=== PATIENT | female | born 1950 | race African-American/Black ===

== ENCOUNTER 2016-11-07 23:53 | Inpatient (IN) ==
[2016-11-08] MEDS ORDERED: SODIUM CHLORIDE 0.9% 1,000 ML IV STA (00:30)
[2016-11-08] MEDS ORDERED: METOCLOPRAMIDE 10 MG/2 ML VIAL IV STA (00:30)
[2016-11-08] MEDS ORDERED: ONDANSETRON 4 MG/2 ML VIAL IV STA (00:30)
--- NOTE | 2016-11-08 00:35 | Emergency Department Note ---
Arrival - Arrival Chief Complaint: Nausea/Vomiting/Diarrhea Stated Complaint: throwing up ED Nursing Triage Note: Patient to triage with c/o N/V since yesterday. unable to keep meals and medications down. Patient stated she started to feel better but tonight s/s returned and that prompted her to come to ED. Last BM today and patient reports it was normal. denies ABD pain or any other s/s. Mode of Arrival: Wheelchair Limitations: No Limitations Source: Patient Time Seen by Provider: 11/08/16 00:30 - History of Present Illness HPI Narrative: This 66-year-old black female presents with 2 days of nausea and vomiting without diarrhea, chills, fever, or severe abdominal pain. She denies anyone at home with similar symptoms nor any recent ingestion of tainted food or beverages. She does complain of area of localized tenderness that is firm and above the umbilicus which the patient states she is only noticed in the last couple days. However, the patient reports a 30 pound weight loss over the last month. She is a diabetic but states her sugars have been fairly well controlled. At the moment she is nauseated but in no medical distress. Onset (ago): day(s) (Patient presents 2 days post onset of symptoms) Date of Last Menstrual Period: menopause Allergies/Adverse Reactions: Allergies Allergy/AdvReac Type Severity Reaction Status Date / Time Sulfa (Sulfonamide Allergy Unknown/Unable Verified 11/08/16 00:04 Antibiotics) to obtain Home Medications: Home Medications Medication Instructions Recorded Confirmed Type Furosemide 40 mg PO DAILY 06/25/15 03/10/16 History Gabapentin 300 mg PO BEDTIME 06/25/15 03/10/16 History HYDROcodone/ACETAMIN 10-325 [[place] 1 tablet PO Q4-6H PRN 06/25/15 03/10/16 History 10-325] Levothyroxine Tab [Synthroid Tab] 150 mcg PO 0600 06/25/15 03/10/16 History Omeprazole 20 mg PO DAILY 06/25/15 03/10/16 History Pentoxifylline [TRENtal] 400 mg PO TID 06/25/15 03/10/16 History Potassium Chloride [Klor-Con M20] 20 meq PO DAILY 06/25/15 03/10/16 History Quinapril [Accupril] 20 mg PO DAILY 06/25/15 03/10/16 History azaTHIOprine [Azathioprine] 50 mg PO DAILY 06/25/15 03/10/16 History Diltiazem Cd Cap [Cardizem CD] 240 mg PO BID #60 capsule 06/29/15 03/10/16 Rx Polyethylene Glycol Powder 17 gm PO TID #90 powder 06/29/15 03/10/16 Rx [Miralax] Warfarin [Coumadin] 3 mg PO DAILY@1800 #30 tablet 06/29/15 03/10/16 Rx Docusate Sodium Cap [Colace Cap] 100 mg PO BID #60 capsule 08/11/15 03/10/16 Rx Acetic Acid 0.25% Irrigation 50 ml IRRIG DAILY PRN 03/09/16 03/10/16 History Albuterol Sulfate [Ventolin HFA] 2 puffs INH Q4-6H PRN 03/09/16 03/10/16 History Chlorpheniramine/Dextromethorp 1 each PO Q6H PRN 03/09/16 03/10/16 History [Coricidin Hbp Cough & Cold Tab] Ferrous Sulfate [Ferrous Sulfate 325 mg PO DAILY 03/09/16 03/10/16 History Cap] Gentamicin 0.1% Cream [Garamycin 1 applic TOP DAILY PRN 03/09/16 03/10/16 History 0.1% Cream] metFORMIN [Glucophage] 850 mg PO DAILY W/BREAKFAST 03/09/16 03/10/16 History predniSONE TAB [PredniSONE] 5 mg PO DAILY 03/09/16 03/10/16 History Collagenase Oint [Santyl Oint] 1 applic TOP DAILY #30 gm 03/17/16 Rx Nebivolol [Bystolic] 40 mg PO DAILY #60 tablet 03/17/16 Rx Spironolactone [Aldactone] 25 mg PO DAILY #60 tablet 03/17/16 Rx Review of System - Review of System 12 point system: reviewed and no additional remarkable complaints except as stated - Review of System Constitutional: Present: as per HPI Gastrointestinal: Present: as per HPI Medical,Surgical,& Family Hx - Medical History Cardio: History of: Cardiac Dysrhythmia, CHF, Hypertension No history of: Congenital Heart Disease, CAD, [place], Pacemaker, PVD, Valvular Heart Disease, Cardiovascular Problems Endocrine: History of: Diabetes Mellitus (NIDDM), Thyroid Disorder, Endocrine Problems No history of: Adrenal Disease, Diabetes Mellitus (IDDM), Dyslipidemia, Endocrine Cancer Rheumatology: History of;: Rheumatoid Arthritis No history of;: Fibromyalgia, Gout, Myasthenia Gravis, Rheumatological Problems Respiratory: History of: COPD, Pulmonary Embolism (2006 per patient) No history of: Asthma, Bronchitis, Intubation, Obstructive Sleep Apnea, Pulmonary Hypertension, Pneumonia, Lung Cancer, Respiratory Problems Musculoskeletal: No history of: Amputation, Back/Neck Problems, Degenerative Disk Disease, Herniated Disk, Osteoporosis, Musculoskeletal Cancer, Musculoskeletal Problems Hematology: No history of: Anemia, Bleeding Problems, Clotting Problems, Sickle Cell Disease, Hematologic Cancer, Blood Disorders Other: History of: Miscellaneous Medical Problems (wounds to legs. Chronic venous disease with history of DVT and pulmonary e) - Surgical History Cardiac Surgeries: Patient Denies: Femoral-Popliteal Bypass Graft, Cardiac Catheterization, Cardiac Surgery, Carotid Endarterectomy, Internal Defibrillator, Vascular Access Devices Thoracic Surgeries: Patient denies;: Organ Transplant, Lobectomy HEENT Surgeries: Patient denies: Carotid Endarterectomy, Thyroid Surgery Abdominal Surgeries: Surgical HX of: Abdominal Surgery, Cholecystectomy Patient denies: Appendectomy, Colonoscopy, Gastric Bypass Surgery, EGD, Hernia Repair, Splenectomy Reproductive Surgeries: Surgical HX of;: Tubal Ligation Patient denies;: Breast Surgery, Section, Dilation and Curettage, Genitourinary Surgery, Gynecologic Surgery, Hysterectomy Orthopedic Surgeries: Patient denies;: Implanted Devices, Orthopedic Surgery, Spinal Surgery, Total Hip Replacement, Total Knee Replacement - Family History Family History: Reports;: Family Hypertension Denies;: Family Anesthesia Reaction, Family Cancer, Family Diabetes, Family Heart Disease, Family Psychiatric Problems, Family Stroke - Social History Smoking Status: Never smoker Frequency of Alcohol Use: None Type of Drug Use: None Exam Physical Examination: GENERAL: Well developed, well nourished elderly black female in no acute distress. HEENT: Normocephalic. No trauma. Moist mucous membranes. EOMI. PERRLA. ENT NML NECK: Supple. No adenopathy. CARDIAC: Regular. No murmurs. Heart rate 127 CHEST: Clear to auscultation. No respiratory distress. O2 sat 95% ABDOMEN: Soft. Nontender except for an area of 3 cm in diameter that is firm and tender above the umbilicus consistent with mass versus entrapped hernia. Hyperactive bowel sounds. EXTREMITIES: No trauma. Normal ROM. No pedal edema. SKIN: No diaphoresis. No rash. NEURO: Alert. Neuro intact no focal deficits. Vital Signs: Vital Signs Temperature 97.5 F L 11/07/16 23:56 Pulse Rate 127 H 11/07/16 23:56 Respiratory Rate 18 11/07/16 23:56 Blood Pressure 166/116 11/07/16 23:56 O2 Sat by Pulse Oximetry 86 L 11/08/16 02:20 Course - Reevaluation(s) Reevaluation #1: Discussed with patient the results of her study which indicates small bowel obstruction - Consultations Consultation #1: Discussed with Dr. Lerner who will admit for further evaluation treatment. Results - Labs CBC & BMP: 11/08/16 00:45 11/08/16 00:45 Labs: I have reviewed the laboratory noted the low hematocrit, low potassium, and elevated lactate. - Diagnostic Findings Procedure: CT Abdomen and Pelvis: image reviewed by me, report reviewed by me ( CT demonstrates mild bowel obstruction secondary to umbilical hernia) Disposition Clinical Impression: Small bowel obstruction, Weight loss Case discussed with: patient Disposition: Still a Patient Condition: Guarded Time of Disposition: 03:08
[2016-11-08 01:38] LABS: Basophils % 0.5 % (0.0-0.8); Eosinophils % 0.7 % (0.00-10.9); Hematocrit 29.3 VOL% (35.7-47.0); Hemoglobin 9.9 GM/DL (12.0-16.0); Immature Granulocytes % 0.3 %; Immature Granulocytes Absolute 0.02 #; Lymphocytes # 1.7 10*3/uL (1.4-4.0); Lymphocytes % 29.3 % (21.3-54.2); Mean Corpuscular HGB Conc 33.8 GM/DL (32-36); Mean Corpuscular Hemoglobin 24 PG (27-34); Mean Corpuscular Volume 70.3 FL (87-102); Mean Platelet Volume 11.5 FL (9.6-12.0); Monocytes # 0.4 10*3/uL (0.11-0.8); Monocytes % 7.4 % (1.7-12.7); Neutrophils # 3.6 10*3/uL (1.4-7.4); Neutrophils % 61.8 % (38.7-73.9); Platelet Count 211 T/CUMM (130-400); Red Blood Count 4.17 MC/CUMM (3.8-5.5); Red Cell Distribution Width 16.3 % (9.3-17.3); White Blood Count 5.8 T/CUMM (4-12)
[2016-11-08] MEDS ORDERED: METOCLOPRAMIDE 10 MG/2 ML VIAL ONE (01:43)
[2016-11-08] MEDS ORDERED: ONDANSETRON 4 MG/2 ML VIAL ONE ×4 (01:43→15:23)
[2016-11-08 02:06] LABS: Lactic Acid 2.4 MMOL/L (0.4-2.0)
[2016-11-08 02:07] LABS: Albumin 3.3 G/DL (3.4-5.0); Bilirubin,Total 1.5 MG/DL (0.2-1.0); Calcium 9.3 MG/DL (8.5-10.1); Osmolality,Calculated 276.5 MOS/KG (273-304); Potassium 3.2 MMOL/L (3.5-5.1); Total Protein 9.1 G/DL (6.4-8.3)
[2016-11-08] MEDS ORDERED: POTASSIUM BICARB EFFERVESCENT 25 MEQ TABLET PO ONE ×2 (02:21→02:39)
[2016-11-08] MEDS ORDERED: hydrALAZINE 20 MG/1 ML VIAL IV STA (02:38)
[2016-11-08] MEDS ORDERED: hydrALAZINE 20 MG/1 ML VIAL ONE (02:39)
[2016-11-08] MEDS ORDERED: LACTATED RINGERS 1,000 ML IV STA (03:42)
[2016-11-08] MEDS ORDERED: DILTIAZEM 50 MG/10 ML VIAL IV STA (03:50)
[2016-11-08] MEDS ORDERED: DILTIAZEM 50 MG/10 ML VIAL IV ONE (03:50)
[2016-11-08] MEDS ORDERED: SODIUM CHLORIDE 0.9% 100 ML IV ONE (04:12)
[2016-11-08] MEDS ORDERED: DILTIAZEM 100 MG VIAL.ADD IV ONE (04:12)
[2016-11-08] MEDS: DILTIAZEM INJ 100 MG in SODIUM CHLORIDE 0.9% 100 ML IV SCH ×3 (04:15→17:30)
--- NOTE | 2016-11-08 05:38 | EKG Report ---
Stationary ECG Study [facility] ER Test Date: 11/08/2016 3:23:09 AM Pat Name: ALBAN OLMOS Department: Room: 111 Gender: F Triage Nurse: : 1950 Requested by: Duran Rouse Order Number: [id number] Reading MD: LINDSEY CARTER Intervals [place] Rate: 143 P: 999 CA: 0 QRS: 13 QRSD: 98 T: 264 QT: 302 QTc: 385 Interpretive Statements ATRIAL FIBRILLATION WITH RAPID VENTRICULAR RESPONSE WITH ABERRANT CONDUCTION OR VENTRICULAR PREMATURE COMPLEXES at [address] DEVIATION AND MODERATE T-WAVE ABNORMALITY, CONSIDER ISCHEMIA Electronically Signed On 11-08-16 07:59:46 CDT by LINDSEY CARTER [email or web address]
[2016-11-08] MEDS ORDERED: ALBUTEROL/IPRATROPIUM 3 ML NEB RESP TX PRN (05:47)
[2016-11-08] MEDS ORDERED: GLUCAGON 1 MG VIAL IM PRN ×2 (05:47→09:42)
[2016-11-08] MEDS ORDERED: DEXTROSE 50% 25 GM/50 ML SYRINGE IV PRN (05:47)
[2016-11-08] MEDS ORDERED: HYDROmorphone 2 MG/1 ML VIAL IV PRN (05:47)
[2016-11-08] MEDS ORDERED: ONDANSETRON 4 MG/2 ML VIAL IV PRN (05:47)
[2016-11-08] MEDS: LACTATED RINGERS 1,000 ML IV SCH ×3 (06:00→21:35)
--- NOTE | 2016-11-08 07:34 | XRay Report ---
XR abdomen 1V Indication: Pneumoperitoneum Comparison: None available Findings: Detail is limited from positioning. No free fluid or free air seen. The bowel gas pattern appears within normal limits. Faint calcifications overlie the right side of abdomen. No other abnormal calcifications are present. No other abnormality is identified. Impression: No definite evidence of free air demonstrated. PROCEDURE INTERPRETED AT [facility] DEPARTMENT OF RADIOLOGY Final Report Signed by: Dr. Tamir Suarez
--- NOTE | 2016-11-08 07:36 | XRay Report ---
XR chest 1V portable Indication: Chest pain Comparison: 20 April 2016 Findings: The heart and mediastinum are stable in size and configuration. The pulmonary vascularity is increased with bilateral increased interstitial lung density. No other lung infiltrates, effusions, pneumothorax or other abnormality is demonstrated. Impression: Findings suggest cardiac decompensation. PROCEDURE INTERPRETED AT [facility] DEPARTMENT OF RADIOLOGY Final Report Signed by: Dr. Tamir Suarez
--- NOTE | 2016-11-08 08:16 | CT Report ---
CT abdomen pelvis Indication: Abdominal pain Comparison: None available Technique: Axial CT imaging of the abdomen and pelvis is performed with intravenous and oral contrast. Contrast dose is 100 cc of Omnipaque 350. Findings: Heart size is enlarged. There is dilated the inferior vena cava with contrast refluxing into the IVC and hepatic veins. CT abdomen: The liver spleen pancreas and adrenal glands are normal in size and enhancement. No evidence of focal lesion is demonstrated in these solid organs. Kidneys are normal in size and enhancement. No evidence of hydronephrosis or nephrolithiasis is seen. There are distended loops of proximal small bowel present. There is anterior abdominal wall hernia with bowel loops extending into the hernia sac. The defects size is estimated 1.6 cm. There is fluid in the inferior hernia sac. Distal bowel caliber is normal and no wall thickening or adjacent inflammatory change is seen. No evidence of free fluid or free air is present. Gallbladder is been removed. There is body wall edema CT pelvis: Large amount of free fluid is seen in the pelvis. The pelvic bowel appears within normal limits. Bladder shows no evidence of abnormality. The pelvic organs show no evidence of abnormality Impression: Ventral abdominal wall hernia containing small bowel with distended proximal small bowel loops suggesting increased partial obstruction. This CT exam was performed using one or more the following dose reduction techniques: Automated exposure control, adjustment of the MA and/or KV according to patient size, or use of iterative reconstruction technique. PROCEDURE INTERPRETED AT [facility] DEPARTMENT OF RADIOLOGY Final Report Signed by: Dr. Tamir Suarez
[2016-11-08] MEDS: METOCLOPRAMIDE 10 MG/2 ML VIAL IV SCH ×3 (08:29→21:35)
[2016-11-08] MEDS: hydrALAZINE 20 MG/1 ML VIAL IV PRN (09:05)
--- NOTE | 2016-11-08 09:10 | Hospitalist Consult Note ---
<Annette Sinclair - Last Filed: 11/08/16 09:00> Assessment and Plan - Time spent with patient Time spent with patient: Greater than 30 minutes (1) Umbilical hernia, incarcerated Status: Acute Assessment and plan: Patient has umbilical hernia with partial small bowel obstruction. Surgery is scheduled for this a.m. Current Visit: Yes (2) Type 2 diabetes mellitus Status: Acute Assessment and plan: Will hold metformin, surgery today. Will order A1c. Will start patient of sliding scale. will continue to monitor. will order a.m. labs. Current Visit: No (3) Hypertension Status: Chronic Assessment and plan: Cardiology has been consulted. Patient has a history of chronic AFib & is on coumadin. Will order PT & INR. Will follow recommendation for blood pressure management, restart home medications. Current Visit: No (4) Hypokalemia Status: Acute Assessment and plan: K 3.2. Will start potassium protocol. Restart home medication potassium. Current Visit: Yes History of Present Illness - Data of Consult Patient: new to practice - Consult Narrative Reason for consult: Medical Management History of present illness: Ms. Amin is a 66 year old black female w/ PMHx of chronic Afib(on coumadin), CHF, HTN, Diabetes, Arthritis, COPD, Thyroid disorder; that presented to the ED for nausea and vomiting without any fever, chills, or abdominal pain x1 - 2 days. While in the ED CT finding of mild bowel obstruction secondary to umbilical hernia and She was [facility] ICU [facility]. The plan is to take her to surgery today for Exploratory Laparotomy and Repair of Hernia. Hospital Medicine is consulted today for medical management with diabetes. CC: Jesus Salinas MD - Home Medications and Allergies Home Medications: Home Medications Medication Instructions Recorded Confirmed Type Furosemide 40 mg PO DAILY 06/25/15 03/10/16 History Gabapentin 300 mg PO BEDTIME 06/25/15 03/10/16 History HYDROcodone/ACETAMIN 10-325 [[place] 1 tablet PO Q4-6H PRN 06/25/15 03/10/16 History 10-325] Levothyroxine Tab [Synthroid Tab] 150 mcg PO 0600 06/25/15 03/10/16 History Omeprazole 20 mg PO DAILY 06/25/15 03/10/16 History Pentoxifylline [TRENtal] 400 mg PO TID 06/25/15 03/10/16 History Potassium Chloride [Klor-Con M20] 20 meq PO DAILY 06/25/15 03/10/16 History Quinapril [Accupril] 20 mg PO DAILY 06/25/15 03/10/16 History azaTHIOprine [Azathioprine] 50 mg PO DAILY 06/25/15 03/10/16 History Diltiazem Cd Cap [Cardizem CD] 240 mg PO BID #60 capsule 06/29/15 03/10/16 Rx Polyethylene Glycol Powder 17 gm PO TID #90 powder 06/29/15 03/10/16 Rx [Miralax] Warfarin [Coumadin] 3 mg PO DAILY@1800 #30 tablet 06/29/15 03/10/16 Rx Docusate Sodium Cap [Colace Cap] 100 mg PO BID #60 capsule 08/11/15 03/10/16 Rx Acetic Acid 0.25% Irrigation 50 ml IRRIG DAILY PRN 03/09/16 03/10/16 History Albuterol Sulfate [Ventolin HFA] 2 puffs INH Q4-6H PRN 03/09/16 03/10/16 History Chlorpheniramine/Dextromethorp 1 each PO Q6H PRN 03/09/16 03/10/16 History [Coricidin Hbp Cough & Cold Tab] Ferrous Sulfate [Ferrous Sulfate 325 mg PO DAILY 03/09/16 03/10/16 History Cap] Gentamicin 0.1% Cream [Garamycin 1 applic TOP DAILY PRN 03/09/16 03/10/16 History 0.1% Cream] metFORMIN [Glucophage] 850 mg PO DAILY W/BREAKFAST 03/09/16 03/10/16 History predniSONE TAB [PredniSONE] 5 mg PO DAILY 03/09/16 03/10/16 History Collagenase Oint [Santyl Oint] 1 applic TOP DAILY #30 gm 03/17/16 Rx Nebivolol [Bystolic] 40 mg PO DAILY #60 tablet 03/17/16 Rx Spironolactone [Aldactone] 25 mg PO DAILY #60 tablet 03/17/16 Rx Allergies/Adverse Reactions: Allergies Allergy/AdvReac Type Severity Reaction Status Date / Time Sulfa (Sulfonamide Allergy Unknown/Unable Verified 11/08/16 00:04 Antibiotics) to obtain Medical,Surgical,& Family Hx - Medical History Cardio: History of: Cardiac Dysrhythmia, CHF, Hypertension No history of: Congenital Heart Disease, CAD, [place], Pacemaker, PVD, Valvular Heart Disease, Cardiovascular Problems Endocrine: History of: Diabetes Mellitus (NIDDM), Thyroid Disorder, Endocrine Problems No history of: Adrenal Disease, Diabetes Mellitus (IDDM), Dyslipidemia, Endocrine Cancer Rheumatology: History of;: Rheumatoid Arthritis No history of;: Fibromyalgia, Gout, Myasthenia Gravis, Rheumatological Problems Respiratory: History of: COPD, Obstructive Sleep Apnea, Pulmonary Embolism ( 2007 per patient) No history of: Asthma, Bronchitis, Intubation, Pulmonary Hypertension, Pneumonia, Lung Cancer, Respiratory Problems Musculoskeletal: No history of: Amputation, Back/Neck Problems, Degenerative Disk Disease, Herniated Disk, Osteoporosis, Musculoskeletal Cancer, Musculoskeletal Problems Hematology: No history of: Anemia, Bleeding Problems, Clotting Problems, Sickle Cell Disease, Hematologic Cancer, Blood Disorders Other: History of: Miscellaneous Medical Problems (wounds to legs. Chronic venous disease with history of DVT and pulmonary e) - Surgical History Cardiac Surgeries: Patient Denies: Femoral-Popliteal Bypass Graft, Cardiac Catheterization, Cardiac Surgery, Carotid Endarterectomy, Internal Defibrillator, Vascular Access Devices Thoracic Surgeries: Patient denies;: Organ Transplant, Lobectomy Neurologic Surgeries: Patient denies: Neurologic Surgery HEENT Surgeries: Patient denies: Carotid Endarterectomy, Eye Surgery, Thyroid Surgery, Tonsilectomy & Adenoidectomy Abdominal Surgeries: Surgical HX of: Abdominal Surgery, Cholecystectomy Patient denies: Appendectomy, Colonoscopy, Gastric Bypass Surgery, EGD, Hernia Repair, Splenectomy Reproductive Surgeries: Surgical HX of;: Tubal Ligation Patient denies;: Breast Surgery, Section, Dilation and Curettage, Genitourinary Surgery, Gynecologic Surgery, Hysterectomy Orthopedic Surgeries: Patient denies;: Implanted Devices, Orthopedic Surgery, Spinal Surgery, Total Hip Replacement, Total Knee Replacement - Family History Family History: Reports;: Family Hypertension, Family Stroke (mother, grandmother, sister) Denies;: Family Anesthesia Reaction, Family Cancer, Family Diabetes, Family Heart Disease, Family Psychiatric Problems - Social History Smoking Status: Never smoker Frequency of Alcohol Use: Rarely Type of Drug Use: None Marital Status: Lives With:: Spouse Functional capacity: uses cane/walker Review of systems: ROS completed and pertinent positives and negatives in the HPI. Exam - Constitutional Vitals: Period Temp Pulse Resp BP Sys/Mehta Pulse Ox Last 24 Hr 97.5 F-98.1 F 103-127 18-29 140-166/95-116 86-98 General appearance: no acute distress, over weight Exam: She verbalized feeling better this morning. She is noted to have a firm palpable area at/around the umbilicus without any tenderness. Abdomen is soft, BS positive and without any tenderness or pain to palpation. Bilateral lower leg dressings intact: (patient verbalized bilateral legs wounds that she has home health and Dr Andre has been caring for). - Head Head exam: Present: normal inspection - Eye Eye exam: Present: EOMI Pupils: Present: SHWETHA - ENT ENT exam: Present: other (left nare NG tube secure, LWS of greenish drainage) - Neck Neck exam: Present: normal inspection - Respiratory Respiratory exam: Present: clear to auscultation bilaterally. Absent: stridor, wheezes - Cardiovascular Cardiovascular exam: Present: irregular rhythm (HX: Afib) - GI/Abdominal GI/Abdominal exam: Present: normal bowel sounds, hernia (umbilicus is firm without any pain ), soft. Absent: tenderness, rebound - Extremities Exam Extremities exam: Present: full ROM, edema (trace edema, bilateral lower leg dressings related to leg wounds that Dr Andre has been following) - Neurological Exam Neurological exam: Present: alert, oriented X3 - Psychiatric Psychiatric exam: Present: normal affect, normal mood. Absent: agitated, anxious - Skin Skin exam: Present: normal color, warm, dry Results - Labs CBC & BMP: 11/08/16 00:45 11/08/16 00:45 Lab Results: I have reviewed the past 24 hour labs - Impressions 11/08/16 Abdomen/Pelvis CT: Impression: Ventral abdominal wall hernia containing small bowel with distended proximal small bowel loops suggesting increased partial obstruction. 11/08/16 CXR: Impression: Findings suggest cardiac decompensation. 11/08/16 Abdomen XR: Impression: No definite evidence of free air demonstrated. - Diagnostic Findings Procedure: Abdominal x-ray: report reviewed by me (no definite evidence of free air demonstrated), Chest x-ray: report reviewed by me (findings suggest cardiac decompensation), CT Abdomen and Pelvis: report reviewed by me (Ventral abdominal wall hernia containing small bowel with distended proximal small bowel loops suggesting increased partial obstruction) Quality Measures - VTE Contraindication to Pharmacological VTE Prophylaxis: High Risk of Bleeding <Miguel Angel Llanos - Last Filed: 11/08/16 09:42> History of Present Illness - Consult Narrative History of present illness: Ms. Amin is a 66 year old female with small bowel obstruction secondary to incarcerated bowel. I have interviewed the patient, examined the patient, and reviewed all the available laboratory tests and x-rays. I concur with the assessment and plans as outlined by the nurse practitioner. She will be treated postoperatively with a sliding scale insulin coverage. CC: Jesus Salinas MD Exam - Constitutional Vitals: Period Temp Pulse Resp BP Sys/Mehta Pulse Ox Last 24 Hr 97.5 F-98.1 F 103-127 18-29 140-166/95-116 86-98 Results - Labs CBC & BMP: 11/08/16 00:45 11/08/16 00:45
[2016-11-08 09:32] LABS: INR 1.7; PT Patient Result 18.7 SECS
[2016-11-08] MEDS ORDERED: DEXTROSE 50% 25 GM/50 ML VIAL IV PRN ×2 (09:41→09:42)
--- NOTE | 2016-11-08 09:58 | General Surg History&Physical ---
Assessment and Plan - Time spent with patient Time spent with patient: Greater than 30 minutes (1) Atrial fibrillation with RVR Status: Acute Assessment and plan: 66-year-old -[place] female with multiple comorbidities admitted by Dr. Salinas through the emergency room last night with an incarcerated umbilical hernia. Patient has abdominal pain with nausea and vomiting. NG tube has been placed with copious amounts of biliary drainage. Antibiotics and IV fluids have been started. Patient did have an elevated lactic acid and this will be repeated this morning to see if she has been adequately resuscitated. Hospitalists have been consulted to assist with her multiple medical problems. Cardiology has also been consulted to assist with her multiple cardiac issues. Patient is in A. fib with RVR on a Cardizem drip in the ICU. Her INR is therapeutic at 1.7. Since she is going emergently to the OR for repair of this incarcerated hernia will go ahead and give her 1 unit of FFP. Her potassium is low and she is getting potassium replacement per protocol. Patient had an appointment with Dr. Andre today in the wound center for her bilateral lower extremity chronic wounds. I did discuss this with Ana Rosa Espitia, his ACNP, and she would like Julia the wound care nurse to handle the wounds while the patient is in the hospital and Dr. Andre will follow up with her after discharge in the wound center. Dr. Salinas will see and examine patient and further recommendations to follow. Current Visit: No (2) History of DVT (deep vein thrombosis) Status: Chronic Current Visit: No (3) Chronic venous insufficiency Status: Chronic Current Visit: No (4) Anemia of chronic disease Status: Chronic Current Visit: No (5) Venous stasis ulcer of both lower extremities without varicose veins Status: Acute Current Visit: No (6) Chronic anticoagulation Status: Chronic Current Visit: No (7) Hypertension Status: Chronic Current Visit: No (8) Dyslipidemia Status: Chronic Current Visit: No (9) Diabetes Status: Chronic Current Visit: No (10) Sleep disorder Status: Chronic Current Visit: No (11) Umbilical hernia, incarcerated Status: Acute Current Visit: Yes (12) Hypokalemia Status: Acute Current Visit: Yes History of Present Illness Chief complaint: Abdominal pain History of present illness: Ms. Amin is a 66 year old -[place] female with history of hypothyroidism, pulmonary embolus, DVT, congestive heart failure, A. fib on Coumadin, diabetes, hypertension, chronic wounds, rheumatoid arthritis, and osteoarthritis admitted by Dr. Salinas through the emergency room last night with abdominal pain, nausea and vomiting. Patient states about 2 days ago she started having nausea and vomiting and localized tenderness above her bellybutton. She states it did improve and then yesterday it came back worse so decided to come to the ED. She denies headache, chest pain, shortness of breath, constipation, or lower extremity pain. Patient is afebrile but tachycardic and hypertensive. Her white count is normal, H&H 9.9/29.3, INR is 1.7, potassium 3.2, lactic acid 2.4, total bilirubin 1.[address] phosphatase [address] scan shows a ventral abdominal wall hernia containing small bowel with distended proximal small bowel loops suggesting bowel obstruction. Patient is also in A. fib with RVR on a Cardizem drip. Upon exam patient is in a lot of abdominal discomfort with approximately 1300 cc of NG output since admission. She has a hard mass superior to her umbilicus that is tender and erythematous. She also has chronic wounds to her bilateral lower extremities that have a foul odor. There are no signs of infection but they are copiously draining. Home Medications Medication Instructions Recorded Confirmed Type Furosemide 40 mg PO DAILY 06/25/15 03/10/16 History Gabapentin 300 mg PO BEDTIME 06/25/15 03/10/16 History HYDROcodone/ACETAMIN 10-325 [[place] 1 tablet PO Q4-6H PRN 06/25/15 03/10/16 History 10-325] Levothyroxine Tab [Synthroid Tab] 150 mcg PO 0600 06/25/15 03/10/16 History Omeprazole 20 mg PO DAILY 06/25/15 03/10/16 History Pentoxifylline [TRENtal] 400 mg PO TID 06/25/15 03/10/16 History Potassium Chloride [Klor-Con M20] 20 meq PO DAILY 06/25/15 03/10/16 History Quinapril [Accupril] 20 mg PO DAILY 06/25/15 03/10/16 History azaTHIOprine [Azathioprine] 50 mg PO DAILY 06/25/15 03/10/16 History Diltiazem Cd Cap [Cardizem CD] 240 mg PO BID #60 capsule 06/29/15 03/10/16 Rx Polyethylene Glycol Powder 17 gm PO TID #90 powder 06/29/15 03/10/16 Rx [Miralax] Warfarin [Coumadin] 3 mg PO DAILY@1800 #30 tablet 06/29/15 03/10/16 Rx Docusate Sodium Cap [Colace Cap] 100 mg PO BID #60 capsule 08/11/15 03/10/16 Rx Acetic Acid 0.25% Irrigation 50 ml IRRIG DAILY PRN 03/09/16 03/10/16 History Albuterol Sulfate [Ventolin HFA] 2 puffs INH Q4-6H PRN 03/09/16 03/10/16 History Chlorpheniramine/Dextromethorp 1 each PO Q6H PRN 03/09/16 03/10/16 History [Coricidin Hbp Cough & Cold Tab] Ferrous Sulfate [Ferrous Sulfate 325 mg PO DAILY 03/09/16 03/10/16 History Cap] Gentamicin 0.1% Cream [Garamycin 1 applic TOP DAILY PRN 03/09/16 03/10/16 History 0.1% Cream] metFORMIN [Glucophage] 850 mg PO DAILY W/BREAKFAST 03/09/16 03/10/16 History predniSONE TAB [PredniSONE] 5 mg PO DAILY 03/09/16 03/10/16 History Collagenase Oint [Santyl Oint] 1 applic TOP DAILY #30 gm 03/17/16 Rx Nebivolol [Bystolic] 40 mg PO DAILY #60 tablet 03/17/16 Rx Spironolactone [Aldactone] 25 mg PO DAILY #60 tablet 03/17/16 Rx Allergies Allergy/AdvReac Type Severity Reaction Status Date / Time Sulfa (Sulfonamide Allergy Unknown/Unable Verified 11/08/16 00:04 Antibiotics) to obtain Medical,Surgical,& Family Hx - Medical History Cardio: History of: Cardiac Dysrhythmia, CHF, Hypertension No history of: Congenital Heart Disease, CAD, [place], Pacemaker, PVD, Valvular Heart Disease, Cardiovascular Problems Endocrine: History of: Diabetes Mellitus (NIDDM), Thyroid Disorder, Endocrine Problems No history of: Adrenal Disease, Diabetes Mellitus (IDDM), Dyslipidemia, Endocrine Cancer Rheumatology: History of;: Rheumatoid Arthritis No history of;: Fibromyalgia, Gout, Myasthenia Gravis, Rheumatological Problems Respiratory: History of: COPD, Obstructive Sleep Apnea, Pulmonary Embolism ( 2006 per patient) No history of: Asthma, Bronchitis, Intubation, Pulmonary Hypertension, Pneumonia, Lung Cancer, Respiratory Problems Musculoskeletal: No history of: Amputation, Back/Neck Problems, Degenerative Disk Disease, Herniated Disk, Osteoporosis, Musculoskeletal Cancer, Musculoskeletal Problems Hematology: No history of: Anemia, Bleeding Problems, Clotting Problems, Sickle Cell Disease, Hematologic Cancer, Blood Disorders Other: History of: Miscellaneous Medical Problems (wounds to legs. Chronic venous disease with history of DVT and pulmonary e) - Surgical History Cardiac Surgeries: Patient Denies: Femoral-Popliteal Bypass Graft, Cardiac Catheterization, Cardiac Surgery, Carotid Endarterectomy, Internal Defibrillator, Vascular Access Devices Thoracic Surgeries: Patient denies;: Organ Transplant, Lobectomy Neurologic Surgeries: Patient denies: Neurologic Surgery HEENT Surgeries: Patient denies: Carotid Endarterectomy, Eye Surgery, Thyroid Surgery, Tonsilectomy & Adenoidectomy Abdominal Surgeries: Surgical HX of: Abdominal Surgery, Cholecystectomy Patient denies: Appendectomy, Colonoscopy, Gastric Bypass Surgery, EGD, Hernia Repair, Splenectomy Reproductive Surgeries: Surgical HX of;: Tubal Ligation Patient denies;: Breast Surgery, Section, Dilation and Curettage, Genitourinary Surgery, Gynecologic Surgery, Hysterectomy Orthopedic Surgeries: Patient denies;: Implanted Devices, Orthopedic Surgery, Spinal Surgery, Total Hip Replacement, Total Knee Replacement - Family History Family History: Reports;: Family Hypertension, Family Stroke (mother, grandmother, sister) Denies;: Family Anesthesia Reaction, Family Cancer, Family Diabetes, Family Heart Disease, Family Psychiatric Problems - Social History Smoking Status: Never smoker Frequency of Alcohol Use: Rarely Type of Drug Use: None Marital Status: Lives With:: Spouse Functional capacity: uses cane/walker Exam - Constitutional Vitals: Period Temp Pulse Resp BP Sys/Mehta Pulse Ox Last 24 Hr 97.5 F-98.1 F 103-127 18-29 140-166/95-116 86-98 Exam: Constitutional System: Moderate distress. No tremulousness. Head: Normocephalic, atraumatic. Ears, Nose and Throat System: No evidence of Otitis or Mastoiditis. No epistaxis or discharge Eyes System: Pupils equal, round, and reactive. Extraocular muscles intact. Neck: Supple, without adenopathy, No jugular venous distention. No thyromegaly, neck mass, or prior surgery apparent. Respiratory System: Chest clear to auscultation. Cardiovascular System: Heart with tachycardic rate and irregularly irregular rhythm. No murmur. GI System: Abdomen soft, tender to palpation at mass superior to the umbilicus that is hard. Hypo-active bowel sounds present. Musculoskeletal System: limbs with moderate pedal edema. No palpable distal pulses due to edema. Chronic venous stasis ulcers on bilateral lower extremities Neurological System: No discernable sensory deficit. No aphasia Psychiatric System: Conversation is rational Review of systems: A complete 10 system review of systems was obtained and pertinent positives and negatives per HPI Quality Measures - VTE Contraindication to Pharmacological VTE Prophylaxis: High Risk of Bleeding Results - Labs CBC & BMP: 11/08/16 00:45 11/08/16 00:45 Lab Results: I have reviewed the past 24 hour labs - EKG EKG shows: atrial fibrillation - Impressions Patient is in A. fib with RVR
[2016-11-08 10:33] LABS: Troponin I Only < 0.015 NG/ML (0.00-0.045)
[2016-11-08] MEDS ORDERED: SKIN HEALING OINT (AQUAPHOR) 50 GM TUBE TOP PRN (10:38)
[2016-11-08] MEDS: POTASSIUM CHLORIDE RIDER 10 MEQ in PREMIX 1 EACH IV PRN ×2 (10:38→16:26)
--- NOTE | 2016-11-08 10:43 | Cardiology Consult Note ---
Kam Padron Vanessa, RN, am scribing for, and in the presence of, Satinder Quinn MD 10 :43. Assessment and Plan - Time spent with patient Time spent with patient: Greater than 30 minutes (Due to assessment, planning, documentation, and medication review) (1) Atrial fibrillation with RVR Status: Acute Assessment and plan: 66-year-old BF with PMHx of chronic AF, HLD, DM, HTN, DVT, hypothyroidism, DONNELL, and CHF. LV EF 45-50% on echo 03/17. Now admitted with N/V, abd pain, incarcerated hernia. Chronic A. fib, now with RVR, likely secondary to her acute surgical issues. -AF. Continue IV Cardizem drip for rate control. Accept tachycardia, up to 140 bpm, if not symptomatic. Once p.o. intake feasible, we can intensify rate control. No indication for cardioversion, A. fib is chronic, severe left atrial enlargement. -HYPOKALEMIA - K+ 3.3. Replete with IV KCl. Follow up BMP. -Mild NICM, CHF. She is moderate cardiac risk for planned surgery, which is urgent. We will continue to follow along and optimize her cardiac function -HYPERTENSION -now mildly elevated. Can use IV hydralazine as needed. -Volume status. Currently, not symptomatic from gross volume overload. Will need close monitoring, anticipate changes after surgery, as her abdominal pathology evolves -DONNELL - Continue CPAP -DYSLIPIDEMIA - Statin on hold. Will resume when able to take enteral meds. -HYPOTHYROIDISM - Resume thyroid supplement when able to take enteral meds. -Anticoagulation. Was on Coumadin for history of PE and chronic A. fib. Was reversed for the planned surgery. As soon as it is compatible with the surgery , restart anticoagulation with LMWH, and then Coumadin, once p.o. intake feasible Current Visit: No (2) Hypothyroidism Status: Chronic Assessment and plan: SEE PLAN OF CARE LISTED ABOVE. Current Visit: Yes (3) Obstructive sleep apnea Status: Chronic Assessment and plan: SEE PLAN OF CARE LISTED ABOVE. Current Visit: Yes (4) Chronic anticoagulation Status: Chronic Current Visit: No (5) Chronic atrial fibrillation Status: Chronic Assessment and plan: SEE PLAN OF CARE LISTED ABOVE. Current Visit: No (6) Venous stasis of both lower extremities Status: Chronic Assessment and plan: SEE PLAN OF CARE LISTED ABOVE. Current Visit: No (7) Diabetes Status: Chronic Assessment and plan: SEE PLAN OF CARE LISTED ABOVE. Current Visit: No (8) Dyslipidemia Status: Chronic Assessment and plan: SEE PLAN OF CARE LISTED ABOVE. Current Visit: No (9) History of DVT (deep vein thrombosis) Status: Chronic Assessment and plan: SEE PLAN OF CARE LISTED ABOVE. Current Visit: No (10) History of rheumatoid arthritis Status: Chronic Assessment and plan: SEE PLAN OF CARE LISTED ABOVE. Current Visit: No (11) Hypertension Status: Chronic Assessment and plan: SEE PLAN OF CARE LISTED ABOVE. Current Visit: No (12) Small bowel obstruction Status: Acute Assessment and plan: SEE PLAN OF CARE LISTED ABOVE. Current Visit: Yes (13) Hypokalemia Status: Acute Assessment and plan: SEE PLAN OF CARE LISTED ABOVE. Current Visit: Yes (14) Umbilical hernia, incarcerated Status: Acute Assessment and plan: SEE PLAN OF CARE LISTED ABOVE. 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 She is very drowsy this morning and somewhat of a poor historian. There is no family available at time of exam and interview, and HPI is gathered from current chart, old clinic records. Ms. Amin is a 66 year old black female with risk factor significant for: hypertension, dyslipidemia, obstructive sleep apnea, sedentary lifestyle, obesity, family history of premature CAD and she has never been a smoker. Past medical history includes chronic atrial fibrillation and is anticoagulated with Jantoven for stroke prevention and DVT prevention (history of DVT). In March 2016, she required admission to hospital for volume overload, acutely decompensated systolic and diastolic congestive heart failure with EF 45-50%, and AFRVR. Echo in March 2016 also showed biatrial enlargement, increased RV size, moderate TR with PA pressure 55 mmHg. The patient also has chronic anemia, and she did require blood transfusion during admission. She has chronic venous stasis with ulcers of bilateral lower extremities and follows routinely with Dr. Andre for wound care. Other history includes hypothyroidism and rheumatoid arthritis, GERD. Ms. Amin presented to [facility] ED last night after midnight with complaints of nausea, vomiting, and diarrhea for approximately 24 hours. She was unable to eat or keep medications down. Patient felt symptoms were improving earlier in the evening but worsened that night prompting her presentation. She also reported some slight abdominal tenderness in umbilical area for approximately 2 days and an unintentional 30 pound weight loss over the last month. CT of abdomen showed ventral abdominal wall hernia with small bowel and distended proximal small bowel loops suggestive of small bowel obstruction. It was decided she be admitted to [facility] for evaluation and treatment of small bowel obstruction, but just prior to transferring from ED to [facility] floor, patient had sudden onset of extreme nausea with dry heaves, increased abdominal pain, hypotension, and was noted to be in atrial fibrillation with ventricular response 150. Patient was then treated with IV Cardizem bolus and infusion, IV fluids, ventricular response improved, and she was rerouted to ICU for close observation. Cardiology is now asked to see this morning for AFRVR. This morning, patient is resting comfortably in the ICU with NADN. IV Cardizem 15 mg/min with ventricular response of 100. BP 151/95. Oxygen saturation 96% with 2L/NC supplemental O2. She is drowsy, but reports she has not had any recent shortness of breath, chest pain, or anginal equivalent. EKG with mild ST deviation, late transition, but no acute ST elevation and unchanged from previous EKG tracings. Reports she does have dyspnea "sometimes" but cannot further specify. Reports she is compliant with her CPAP at home, and says that she feels much better and more alert since she has started using this. No current N/V. Stable anemia with H&H 9.9/29.3. Hypokalemic with K+ 3.2. Received dose of potassium bicarbonate/citric acid 50 mEq while in ER. Bilateral lower extremity with dressings in place, and patient says she has "wounds" of bilateral lower extremities which Dr. Andre has addressed in the past , but she was scheduled for a doctor's appointment in [place] today for a second opinion prior to onset of acute illness. CC: Jesus Salinas MD - Home Medications and Allergies Home Medications: Home Medications Medication Instructions Recorded Confirmed Type Furosemide 40 mg PO DAILY 06/25/15 03/10/16 History Gabapentin 300 mg PO BEDTIME 06/25/15 03/10/16 History HYDROcodone/ACETAMIN 10-325 [[place] 1 tablet PO Q4-6H PRN 06/25/15 03/10/16 History 10-325] Levothyroxine Tab [Synthroid Tab] 150 mcg PO 0600 06/25/15 03/10/16 History Omeprazole 20 mg PO DAILY 06/25/15 03/10/16 History Pentoxifylline [TRENtal] 400 mg PO TID 06/25/15 03/10/16 History Potassium Chloride [Klor-Con M20] 20 meq PO DAILY 06/25/15 03/10/16 History Quinapril [Accupril] 20 mg PO DAILY 06/25/15 03/10/16 History azaTHIOprine [Azathioprine] 50 mg PO DAILY 06/25/15 03/10/16 History Diltiazem Cd Cap [Cardizem CD] 240 mg PO BID #60 capsule 06/29/15 03/10/16 Rx Polyethylene Glycol Powder 17 gm PO TID #90 powder 06/29/15 03/10/16 Rx [Miralax] Warfarin [Coumadin] 3 mg PO DAILY@1800 #30 tablet 06/29/15 03/10/16 Rx Docusate Sodium Cap [Colace Cap] 100 mg PO BID #60 capsule 08/11/15 03/10/16 Rx Acetic Acid 0.25% Irrigation 50 ml IRRIG DAILY PRN 03/09/16 03/10/16 History Albuterol Sulfate [Ventolin HFA] 2 puffs INH Q4-6H PRN 03/09/16 03/10/16 History Chlorpheniramine/Dextromethorp 1 each PO Q6H PRN 03/09/16 03/10/16 History [Coricidin Hbp Cough & Cold Tab] Ferrous Sulfate [Ferrous Sulfate 325 mg PO DAILY 03/09/16 03/10/16 History Cap] Gentamicin 0.1% Cream [Garamycin 1 applic TOP DAILY PRN 03/09/16 03/10/16 History 0.1% Cream] metFORMIN [Glucophage] 850 mg PO DAILY W/BREAKFAST 03/09/16 03/10/16 History predniSONE TAB [PredniSONE] 5 mg PO DAILY 03/09/16 03/10/16 History Collagenase Oint [Santyl Oint] 1 applic TOP DAILY #30 gm 03/17/16 Rx Nebivolol [Bystolic] 40 mg PO DAILY #60 tablet 03/17/16 Rx Spironolactone [Aldactone] 25 mg PO DAILY #60 tablet 03/17/16 Rx Allergies/Adverse Reactions: Allergies Allergy/AdvReac Type Severity Reaction Status Date / Time Sulfa (Sulfonamide Allergy Unknown/Unable Verified 11/08/16 00:04 Antibiotics) to obtain ROS unobtainable: due to mental status 12 point system: reviewed and no additional remarkable complaints except as stated Medical,Surgical,& Family Hx - Medical History Cardio: History of: Cardiac Dysrhythmia, CHF, Hypertension No history of: Congenital Heart Disease, CAD, [place], Pacemaker, PVD, Valvular Heart Disease, Cardiovascular Problems Neurology: No history of: Dementia, TIA Endocrine: History of: Diabetes Mellitus (NIDDM), Dyslipidemia, Thyroid Disorder , Endocrine Problems No history of: Adrenal Disease, Diabetes Mellitus (IDDM), Endocrine Cancer Rheumatology: History of;: Rheumatoid Arthritis No history of;: Fibromyalgia, Gout, Myasthenia Gravis, Rheumatological Problems Respiratory: History of: COPD, Obstructive Sleep Apnea No history of: Asthma, Bronchitis, Intubation, Pulmonary Hypertension, Pneumonia, Lung Cancer, Respiratory Problems Renal: No history of: Dialysis, Renal Problems Gastrointestinal: History of: Bowel Obstruction (current dx SBO), GERD No history of: Gastrointestinal Bleed, Hepatitis, Pancreatitis, Ulcerative Colitis Musculoskeletal: No history of: Amputation, Back/Neck Problems, Degenerative Disk Disease, Herniated Disk, Osteoporosis, Musculoskeletal Cancer, Musculoskeletal Problems Hematology: History of: Anemia, Bleeding Problems, Clotting Problems (hx DVT) No history of: Blood Transfusion Reaction, Sickle Cell Disease, Hematologic Cancer, Blood Disorders Reproductive: No history of: Breast Cancer, Reproductive Problems Other: History of: Miscellaneous Medical Problems (wounds to legs. Chronic venous disease with history of DVT and pulmonary e) No history of: Cancer, HIV - Surgical History Cardiac Surgeries: Patient Denies: Cardiac Catheterization, Cardiac Surgery, Carotid Endarterectomy, Internal Defibrillator, Vascular Access Devices Thoracic Surgeries: Patient denies;: Organ Transplant, Lobectomy Neurologic Surgeries: Patient denies: Neurologic Surgery HEENT Surgeries: Patient denies: Carotid Endarterectomy, Eye Surgery, Thyroid Surgery, Tonsilectomy & Adenoidectomy Abdominal Surgeries: Surgical HX of: Abdominal Surgery, Cholecystectomy Patient denies: Gastric Bypass Surgery, Hernia Repair Reproductive Surgeries: Surgical HX of;: Tubal Ligation Patient denies;: Hysterectomy - Family History Family History: Reports;: Family Hypertension, Family Stroke (mother, grandmother, sister) Denies;: Family Anesthesia Reaction, Family Cancer, Family Diabetes, Family Heart Disease, Family Psychiatric Problems - Social History Smoking Status: Never smoker Frequency of Alcohol Use: Rarely Type of Drug Use: None Physical Examination Vital Signs Temp Pulse Resp BP Pulse Ox 97.5 F L 127 H 18 166/116 95 11/07/16 23:56 11/07/16 23:56 11/07/16 23:56 11/07/16 23:56 11/07/16 23:56 General: Present: No Apparent Distress, Other (overweight) Neck: Present: Supple Neck, Midline Trachea, No Bruit Cardiac: Present: Irregularly Regular, No Murmur, Tachycardia. Absent: Bradycardia Lungs: Present: Clear Ascult./Percussion, Oxygen, No Wheeze, Rales, Rhonchi Neuro: Present: Grossly Intact. Absent: Tingling, Weakness, Resting Tremor Abdomen: Present: Soft, Decreased Bowel Sounds, Tender (umbilical area), Other ( mass like area periumbilical area) Skin: Absent: Rash, Suspicious Lesions Musculoskeletal: Present: Decreased Range of Motion Extremities: Present: No Cyanosis, No Edema, Normal Upper Extr. Pulses (2+ bilaterally), Normal Lower Extr. Pulses (Popliteal 2+ bilaterally), Capillary Refill (Normal), Other (BLEs with dry/intact dressings covering BLE ulcers; venous stasis changes noted) Result/EKG - Labs CBC & BMP: 11/08/16 00:45 11/08/16 00:45 Lab Results: I have reviewed the past 24 hour labs Labs: Laboratory Results - last 24 hr 11/08/16 11/08/16 11/08/16 00:45 00:45 04:33 WBC 5.8 RBC 4.17 Hgb 9.9 L Hct 29.3 L MCV 70.3 L MCH 24 L MCHC 33.8 RDW 16.3 Plt Count 211 MPV 11.5 Neut % (Auto) 61.8 Lymph % (Auto) 29.3 [place] % (Auto) 7.4 Eos % (Auto) 0.7 Baso % (Auto) 0.5 Neut # (Auto) 3.6 Lymph # (Auto) 1.7 [place] # (Auto) 0.4 Eos # (Auto) 0.0 Baso # (Auto) 0.0 Immature Gran % 0.3 Nucleated RBC % 0.0 Immature Gran # 0.02 Nucleated RBCs # 0.00 Immature Plt Fraction 0.0 Sodium 139 Potassium 3.2 L Chloride 102 Carbon Dioxide 27 Anion Gap 13.2 BUN 14 Creatinine 0.90 GFR Calculation 93 BUN/Creatinine Ratio 15.00 Glucose 85 POC Glucose 103 Calculated Osmolality 276.5 Lactic Acid 2.4 H Calcium 9.3 Total Bilirubin 1.50 H AST 28 ALT 15 Alkaline Phosphatase 258 H Total Protein 9.1 H Albumin 3.3 L Globulin 5.8 H Albumin/Globulin Ratio 0.5 L Amylase 21 L Lipase 116.0 - Diagnostic Findings Procedure: Abdominal x-ray: image reviewed by me, report reviewed by me, Chest x -ray: image reviewed by me, report reviewed by me, CT Abdomen and Pelvis: image reviewed by me, report reviewed by me - EKG EKG results: interpreted by me, no acute changes EKG shows: atrial fibrillation Quality Measures - VTE Contraindication to Pharmacological VTE Prophylaxis: High Risk of Bleeding Kai Padron Attila, MD, personally performed the services described in this documentation, ascribed by Brinda Humphrey RN in my presence, and it is both accurate and complete .
[2016-11-08] MEDS: INSULIN LISPRO 100 UNIT/ML SUBCUT SCH ×2 (12:08→18:31)
[2016-11-08] MEDS ORDERED: ETOMIDATE 20 MG/10 ML VIAL IV ONE ×2 (12:11→15:23)
[2016-11-08] MEDS ORDERED: SUGAMMADEX 200 MG/2 ML VIAL IV ONE ×2 (12:11→14:58)
[2016-11-08] MEDS ORDERED: LIDOCAINE 1% 5 ML VIAL ONE (12:11)
[2016-11-08] MEDS ORDERED: PHENYLEPHRINE 1 MG/10 ML SYRINGE IV ONE (12:11)
[2016-11-08] MEDS ORDERED: GLYCOPYRROLATE 0.4 MG/2 ML VIAL ONE (12:11)
[2016-11-08] MEDS ORDERED: PROPOFOL 200 MG/20 ML VIAL IV ONE (12:11)
[2016-11-08] MEDS ORDERED: MINERAL OIL/PETROLATUM OPH OINT 3.5 GM TUBE ONE (12:11)
[2016-11-08] MEDS ORDERED: SUCCINYLCHOLINE 200 MG/10 ML VIAL ONE (12:11)
[2016-11-08] MEDS ORDERED: HYDROCORTISONE 100 MG VIAL ONE (12:11)
[2016-11-08] MEDS ORDERED: ROCURONIUM 100 MG/10 ML VIAL IV ONE (12:11)
[2016-11-08] MEDS ORDERED: NEOSTIGMINE 10 MG/10 ML VIAL ONE (12:11)
--- NOTE | 2016-11-08 15:01 | Operative Note ---
Date of procedure: 11/08/16 Pre-op diagnosis: Small bowel obstruction, incarcerated incisional hernia status post reduced Post-op diagnosis: same (No further small bowel obstruction identified after reduction) Procedure: Procedure performed: #1 exploratory laparotomy with lysis of adhesions #2 repair of reduced incisional hernia Procedure in detail: After informed consent was obtained, patient was taken to the operating suite and placed supine on the operating table. After general anesthesia was induced abdomen was prepped and draped in usual sterile fashion. After procedural pause a small midline laparotomy incision was made above the umbilicus and carried down through skin and soft tissue. The fascia identified the fascia was opened and the abdominal cavity was entered. I then continued the dissection inferiorly until I reached the hernia sac dissected the hernia sac off the surrounding tissue. It was intimately adherent to the umbilicus. There is a small through and through rent of the base of the umbilicus. This was repaired with 3-0 Vicryl running suture. Once the sac was completely dissected from the surrounding tissue it was removed at the level of the fascia. It had some preperitoneal fat incarcerated within it. There was no bowel in the hernia sac at this time. Once the hernia sac was removed it was passed off the field. I examined the small bowel in this area and it all appeared healthy pink and viable there was no areas of duskiness. There was an adhesion along the anterior abdominal wall and this was lysed sharply. The abdomen was thoroughly irrigated and suctioned and there was good hemostasis. I did not see any further evidence of obstruction and in fact most of the bowel appear decompressed. I debrided back to the fascial edges at the area of the hernia. The hernia was repaired with closure of the fascia. The fascia was closed with #1 Running Loop PDS. Wound was thoroughly irrigated and suctioned. The umbilicus was tacked back down to the fascia using 3-0 Vicryl suture. Skin was closed with nghia. Sterile dressings applied. The patient was extubated taken recovery room in stable condition. All lap and needle counts were correct at the end of the case. Anesthesia: KAPILA Surgeon / Physician: Jesus Salinas Estimated blood loss: other (Less than 10 cc) Specimens: other (Hernia sac) Condition: stable Disposition: PACU Results - Labs CBC & BMP: 11/08/16 00:45 11/08/16 00:45 Discharge Plan - Discharge Medications No Action Quinapril [Accupril] 20 mg PO DAILY Potassium Chloride [Klor-Con M20] 20 meq PO DAILY Pentoxifylline [TRENtal] 400 mg PO TID Omeprazole 20 mg PO DAILY Levothyroxine Tab [Synthroid Tab] 150 mcg PO DAILY HYDROcodone/ACETAMIN 10-325 [[place] 10-325] 1 tablet PO Q4-6H PRN PRN Reason: Pain Gabapentin 300 mg PO TID Furosemide 40 mg PO DAILY Polyethylene Glycol Powder [Miralax] 17 gm PO TID #90 powder Spironolactone [Aldactone] 25 mg PO DAILY #60 tablet Nebivolol [Bystolic] 20 mg PO DAILY Diltiazem Cd Cap [Cardizem CD] 240 mg PO TID Methotrexate Tab [Methotrexate Tab] 15 mg PO Q7DAY Warfarin Sodium [Jantoven] 3 mg PO DAILY Tizanidine HCl [Zanaflex] 4 mg PO TID PRN PRN Reason: Leg Cramps Naproxen [Naproxen Tab] 500 mg PO BID PRN PRN Reason: Pain and Inflammation Krill/Om-3/Dha/Epa/Phospho/Ast [[place]-3 Krill Oil 300 mg Sfgl] 2 each PO DAILY metFORMIN [Glucophage] 850 mg PO DAILY W/BREAKFAST predniSONE TAB [PredniSONE] 5 mg PO DAILY Cyanocobalamin (Vitamin B-12) [Vitamin B-12] 50 mcg PO DAILY Folic Acid Tab 1 mg PO DAILY - Follow Up or Referral - Forms/Instructions
[2016-11-08] MEDS ORDERED: NALOXONE 0.4 MG/ML VIAL ONE (15:23)
[2016-11-08] MEDS ORDERED: MIDAZOLAM 2 MG/2 ML VIAL ONE (15:23)
[2016-11-08] MEDS ORDERED: SEVOFLURANE 1 UNIT/15 MINUTE INH ONE (15:24)
[2016-11-08 15:29] LABS: Apearance,Urine CLEAR (Clear); Bacteria,Urine Occasional /HPF (Few); Bilirubin,Urine Negative (Negative); Blood, Urine Negative (Negative); Glucose,Urine (UA) Negative (Negative); Ketones,Urine 20 mg/dL (Negative); Mucus,Urine Occasional /LPF (Occasional); Nitrite,Urine Negative (Negative); Protein,Urine 100 MG/DL; RBC,Urine 4 /HPF (0-4); Squamous Epithelial Cell,Urine Occasional /HPF (0-10); Urine Color Yellow (Yellow); Urine Specific Gravity 1.056 (1.001-1.035); Urine Urobilinogen < 2.0 EU/DL (0.2-1.0); WBC,Urine 2 /HPF (0-6)
--- NOTE | 2016-11-08 16:12 | Anesthesia Post-Op ---
Anesthesia Post OP - Post Ansesthetic Evaluation Patient seen in post op: Yes Resp: within normal limits CV: within normal limits Mental: within normal limits Temp: within normal limits [id number]-Ch-Uvygfepit: within normal limits Nausea and Vomiting: within normal limits Pain: within normal limits
--- NOTE | 2016-11-08 20:02 | ECHO Report ---
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 Mild concentric hypertrophy. Abnormal septal motion, with normal systolic thickening. Estimated left ventricular ejection fraction 55%. Moderately dilated right ventricle, with normal systolic function. Severely dilated right atrium, moderately dilated left atrium. PFO, or small ASD, the left to right shunt is not well visualized, due to severity of tricuspid regurgitation. Was small on her prior echo. Severe tricuspid regurgitation, with at least moderate pulmonary hypertension. MEASUREMENTS (Male / Female) Normal Values 2D ECHO LV Diastolic Diameter PLAX 4.5 cm 4.2 - 5.9 / 3.9 - 5.3 cm LV Systolic Diameter PLAX 3.1 cm LV Fractional Shortening PLAX 31.1 % IVS Diastolic Thickness 1.3 cm 0.6 - 1.0 / 0.6 - 0.9 cm LVPW Diastolic Thickness 1.3 cm 0.6 - 1.0 / 0.6 - 0.9 cm Aortic Root Diameter 2.9 cm LA Systolic Diameter LX 5.4 cm 3.0 - 4.0 / 2.7 - 3.8 cm DOPPLER TR Peak Velocity 358.0 cm/s TR Peak Gradient 51.3 mmHg FINDINGS Left Ventricle Normal left ventricular cavity size. Mild concentric hypertrophy. Abnormal septal motion, with normal systolic thickening. Estimated left ventricular ejection fraction 55%. Unable to estimate diastolic function due to arrhythmia. Right Ventricle Moderately increased right ventricular size, with normal systolic function. Right Atrium Severely dilated right atrium. The left to right shunt is not well seen on current echo, due to severe TR, was small on her prior echo, consistent with PFO or small ASD. Left Atrium Moderately increased left atrial size. Mitral Valve Morphologically normal mitral valve. Mild mitral valve regurgitation. Aortic Valve The aortic valve is trileaflet and has normal motion. Tricuspid Valve Morphologically normal tricuspid valve. Severe tricuspid valve regurgitation. Tricuspid regurgitation velocities suggest a PAP of 51 mmHg + RAP, which may be underestimated, due to severity of regurgitation. Pulmonic Valve Morphologically normal pulmonic valve. Trace pulmonary valve regurgitation. Pericardium No pericardial effusion. Aorta Normal size aortic root and proximal ascending aorta. Satinder Quinn (Electronically Signed) Final Date: 08 November 2016 20:00
[2016-11-08] MEDS ORDERED: LACTATED RINGERS 500 ML IV ONE (21:50)
[2016-11-08] MEDS ORDERED: ALBUMIN 5% 12.5 GM in PREMIX 1 EACH IV ONE (23:37)
[2016-11-09] MEDS: INSULIN LISPRO 100 UNIT/ML SUBCUT SCH ×4 (00:09→18:09)
[2016-11-09] MEDS: METOCLOPRAMIDE 10 MG/2 ML VIAL IV SCH ×4 (01:35→20:15)
[2016-11-09] MEDS: DILTIAZEM INJ 100 MG in SODIUM CHLORIDE 0.9% 100 ML IV SCH ×3 (01:36→09:00)
[2016-11-09] MEDS ORDERED: LACTATED RINGERS 500 ML IV ONE (01:40)
[2016-11-09 05:36] LABS: Basophils % 0.1 % (0.0-0.8); Eosinophils % 0.1 % (0.00-10.9); Hematocrit 25.8 VOL% (35.7-47.0); Hemoglobin 8.8 GM/DL (12.0-16.0); Immature Granulocytes % 0.4 %; Immature Granulocytes Absolute 0.03 #; Lymphocytes # 1.2 10*3/uL (1.4-4.0); Lymphocytes % 15.6 % (21.3-54.2); Mean Corpuscular HGB Conc 34.1 GM/DL (32-36); Mean Corpuscular Hemoglobin 24 PG (27-34); Mean Corpuscular Volume 70.9 FL (87-102); Mean Platelet Volume 11.6 FL (9.6-12.0); Monocytes # 0.8 10*3/uL (0.11-0.8); Monocytes % 10.3 % (1.7-12.7); Neutrophils # 5.5 10*3/uL (1.4-7.4); Neutrophils % 73.5 % (38.7-73.9); Platelet Count 174 T/CUMM (130-400); Red Blood Count 3.64 MC/CUMM (3.8-5.5); Red Cell Distribution Width 15.9 % (9.3-17.3); White Blood Count 7.5 T/CUMM (4-12)
[2016-11-09 06:33] LABS: Calcium 8.8 MG/DL (8.5-10.1); Magnesium 1.7 MG/DL (1.8-2.4); Osmolality,Calculated 281.3 MOS/KG (273-304); Potassium 3.2 MMOL/L (3.5-5.1)
[2016-11-09] MEDS: LACTATED RINGERS 1,000 ML IV SCH ×4 (06:44→22:44)
--- NOTE | 2016-11-09 07:38 | Hospitalist Progress Note ---
Assessment and Plan (1) Type 2 diabetes mellitus Status: Acute Assessment and plan: She is being treated with sliding scale regular insulin coverage. Her blood glucose this morning is 84. Current Visit: No Qualifiers: Diabetes mellitus complication status: without complication (2) Small bowel obstruction Status: Acute Assessment and plan: She is stable day 1 postoperative exploratory laparotomy for lysis of abdominal adhesions and reduction of hernia. Current Visit: Yes Hospitalist: Subjective Interval history: Patient is stable day 1 status post exploratory laparotomy for repair of reduced hernia and lysis of abdominal adhesions. She has a nasogastric tube in place. She has not yet passing flatus. She states that her pain is well controlled. Exam - Constitutional Vitals: Period Temp Pulse Resp BP Sys/Mehta Pulse Ox Last 24 Hr 97.7 F-99.7 F 89-124 15-30 124-161/79-110 90-97 General appearance: no acute distress, other (Nasogastric tube.) - Head Head exam: Present: normal inspection - Neck Neck exam: Present: normal inspection - Respiratory Respiratory exam: Present: clear to auscultation bilaterally - Cardiovascular Cardiovascular exam: Present: regular rate and rhythm - GI/Abdominal GI/Abdominal exam: Present: other (Her abdominal incision is bandaged. She has no bowel sounds.) - Extremities Exam Extremities exam: Present: normal inspection - Neurological Exam Neurological exam: Present: alert, oriented X3 - Skin Skin exam: Present: normal color, warm, intact Results - Labs CBC & BMP: 11/09/16 04:23 11/09/16 04:23 Quality Measures - VTE Contraindication to Pharmacological VTE Prophylaxis: High Risk of Bleeding
[2016-11-09] MEDS ORDERED: MAGNESIUM SULF RIDER 2 GM in PREMIX 1 EACH IV ONE (09:13)
[2016-11-09] MEDS: POTASSIUM CHLORIDE RIDER 10 MEQ in PREMIX 1 EACH IV PRN (09:50)
[2016-11-09] MEDS: DILTIAZEM 30 MG TABLET PO SCH ×4 (11:25→20:16)
--- NOTE | 2016-11-09 12:19 | Event Note ---
Patient is doing well. Pain appears well-controlled. NG tube is pretty clear with a moderate amount out. We will clamp the NG tube and allow her to have ice chips today. She will begin p.o. meds. Her abdomen is soft nondistended and appropriately tender. Incision looks good. May be to the floor tomorrow.
--- NOTE | 2016-11-09 12:19 | Event Note ---
66-year-old Afro-Stateless female with multiple comorbidities admitted by Dr. Salinas through the emergency room with an incarcerated umbilical hernia, A. fib with RVR. She was taken to the OR on 11/08/2016 for exploratory laparotomy with lysis of adhesions and repair of a reduced incisional hernia. Hospitalist and cardiology are both following. Patient is awake and alert and feels a lot better. NG tube is in place and is clamped. She complains of soreness to the abdomen but otherwise the pain she had yesterday has resolved. She is not passing gas or having bowel movements. Afebrile, still with tachycardia up to 120, blood pressures are up 145/109 NG tube with 300 output since surgery WBCs okay, H&H stable, potassium low 3.2, creatinine 1.1, mag 1.7 Positive MRSA of the nares Abdomen soft, appropriately tender, incision looks good AP--patient has been switched to p.o. Cardizem, keep in ICU 1 more day to see if she tolerates NG tube clamped, okay to give p.o. medicines, unclamp if patient has nausea or abdominal cramping, keep n.p.o. Monitor electrolytes and replace per protocol, mag and potassium being replaced today Dr. Salinas has seen and examined patient and further recommendations to follow.
[2016-11-09] MEDS: hydrALAZINE 20 MG/1 ML VIAL IV PRN (14:28)
[2016-11-09] MEDS: ACETIC ACID 0.25% IRRIGATION 1,000 ML BOTTLE IRRIG SCH (15:24)
[2016-11-09] MEDS: GENTAMICIN 0.1% OINT 15 GM TUBE TOP SCH (15:24)
--- NOTE | 2016-11-09 15:30 | Cardiology Progress Note ---
Kam Padron Vanessa, RN, am scribing for, and in the presence of, Satinder Quinn MD 15 :30. Assessment and Plan - Time spent with patient Time spent with patient: Greater than 30 minutes (1) Atrial fibrillation with RVR Status: Acute Assessment and plan: 66-year-old BF with PMHx of chronic AF, HLD, DM, HTN, DVT, hypothyroidism, DONNELL, and CHF. LV EF 45-50% on echo 03/17. Admitted with SBO and incarcerated umbilical hernia now s/p exp laparotomy and hernia repair. Episode of A. fib with RVR during acute illness. -AFRVR -start metoprolol 5 mg IV as needed heart rate greater than 100, every 4 hours. She got Cardizem p.o., her GI absorption can still be limited. I would also be very careful with calcium for bronchitis after her recent abdominal surgery. Chronic A. fib with severe LA enlargement and no indication for cardioversion. -ANTICOAGULATION -resume Coumadin, follow INR. -HYPOKALEMIA - K+ 3.2. Replete with IV KCl. Follow up BMP. -HYPOMAGNESEMIA -MG +1.7. Replete with mag sulfate 2 gms IV. Follow up BMP. -MILD NICM, CHF - Currently no clinical findings for decompensation/volume overload. Continue to monitor closely. Received 2.5 liters fluid volume overnight for decreased UOP. -HYPERTENSION -remains mildly elevated at times. Use IV metoprolol, before IV hydralazine, to avoid reflex tachycardia -DONNELL - Continue CPAP -DYSLIPIDEMIA - Statin on hold. Will resume when p.o. intake improves -HYPOTHYROIDISM - Resume thyroid supplement when able Current Visit: No (2) Hypothyroidism Status: Chronic Assessment and plan: SEE PLAN OF CARE LISTED ABOVE. Current Visit: Yes (3) Obstructive sleep apnea Status: Chronic Assessment and plan: SEE PLAN OF CARE LISTED ABOVE. Current Visit: Yes (4) Chronic anticoagulation Status: Chronic Current Visit: No (5) Chronic atrial fibrillation Status: Chronic Assessment and plan: SEE PLAN OF CARE LISTED ABOVE. Current Visit: No (6) Venous stasis of both lower extremities Status: Chronic Assessment and plan: SEE PLAN OF CARE LISTED ABOVE. Current Visit: No (7) Diabetes Status: Chronic Assessment and plan: SEE PLAN OF CARE LISTED ABOVE. Current Visit: No (8) Dyslipidemia Status: Chronic Assessment and plan: SEE PLAN OF CARE LISTED ABOVE. Current Visit: No (9) History of DVT (deep vein thrombosis) Status: Chronic Assessment and plan: SEE PLAN OF CARE LISTED ABOVE. Current Visit: No (10) History of rheumatoid arthritis Status: Chronic Assessment and plan: SEE PLAN OF CARE LISTED ABOVE. Current Visit: No (11) Hypertension Status: Chronic Assessment and plan: SEE PLAN OF CARE LISTED ABOVE. Current Visit: No (12) Small bowel obstruction Status: Acute Assessment and plan: SEE PLAN OF CARE LISTED ABOVE. Current Visit: Yes (13) Hypokalemia Status: Acute Assessment and plan: SEE PLAN OF CARE LISTED ABOVE. Current Visit: Yes (14) Umbilical hernia, incarcerated Status: Acute Assessment and plan: SEE PLAN OF CARE LISTED ABOVE. Current Visit: Yes Cardiology - PN: Subj Interval history: PRIMARY CABLE OPERATOR: DR. MATTHEWS SUMMARY: 66-year-old black female with PMHx hypertension, dyslipidemia, DONNELL, obesity, hypothyroidism, PE, chronic atrial fibrillation, and CHF. Chronic anticoagulation with Coumadin. She is currently admitted with small bowel obstruction and incarcerated incisional hernia. She required admission and observation in ICU due to AFRVR during acute illness and has been maintained on IV Cardizem for rate control. Patient taken to the OR on 11/08 for exploratory lap with adhesion lysis and hernia repair. Echo this admission with normal LV systolic function, EF 55%, severe biatrial dilation, moderate pulmonary hypertension. Cardiology was asked to see for management of atrial fibrillation. October: POD #1 status post exploratory lap and hernia repair. Some decreased UOP overnight and now improving after IVF boluses and albumin. She is comfortable this morning with NAD. Atrial fibrillation with ventricular rate 100-105 bpm. No ectopy or sustained dysrhythmia per telemetry. Borderline elevated BP at times but overall stable, 142/94 currently. Post op H&H 8.8/25.8. Hypokalemic, 3.2. Hypomagnesemic, 1.7. Exam (Progress Note) - Constitutional Vitals: Period Temp Pulse Resp BP Sys/Mehta Pulse Ox Last 24 Hr 97.7 F-99.7 F 93-124 15-30 124-161/79-110 90-96 Exam: General: Present: No Apparent Distress, Other (obese) Neck: Present: Supple Neck, Midline Trachea, No Bruit Cardiac: Present: Irregularly Regular, No Murmur, Tachycardia. Absent: Bradycardia Lungs: Present: Clear Ascult./Percussion, Oxygen, No Wheeze, Rales, Rhonchi Neuro: Present: Grossly Intact. Absent: Tingling, Weakness, Resting Tremor Abdomen: Present: Soft, Decreased Bowel Sounds, abdominal incision covered with dsg/abd binder. Skin: Absent: cyanosis, diaphoresis Musculoskeletal: Present: Decreased Range of Motion Extremities: Present: No Edema, Normal Upper Extr. Pulses (2+ bilaterally), Normal Lower Extr. Pulses (Popliteal 2+ bilaterally), Capillary Refill (Normal) , Other (BLEs with dry/intact dressings covering BLE ulcers; venous stasis changes noted) Result/EKG - Labs CBC & BMP: 11/09/16 04:23 11/09/16 04:23 Lab Results: I have reviewed the past 24 hour labs Labs: Laboratory Results - last 24 hr 11/08/16 11/08/16 11/08/16 09:11 09:11 09:11 WBC RBC Hgb Hct MCV MCH MCHC RDW Plt Count MPV Neut % (Auto) Lymph % (Auto) [place] % (Auto) Eos % (Auto) Baso % (Auto) Neut # (Auto) Lymph # (Auto) [place] # (Auto) Eos # (Auto) Baso # (Auto) Immature Gran % Nucleated RBC % Immature Gran # Nucleated RBCs # Immature Plt Fraction INR 1.7 PT Patient/Control Mix 18.7 Sodium Potassium Chloride Carbon Dioxide Anion Gap BUN Creatinine GFR Calculation BUN/Creatinine Ratio Glucose POC Glucose Hemoglobin A1c Calculated Osmolality Lactic Acid Calcium Magnesium Total Creatine Kinase 63 CK-MB (CK-2) < 1.0 Troponin I < 0.015 Urine Color Urine Appearance Urine pH Ur Specific [place] Urine Protein Urine Glucose (UA) Urine Ketones Urine Blood Urine Nitrate Urine Bilirubin Urine Urobilinogen Urine Leukocytes Urine RBC Urine WBC Ur Squamous Epith Cells Urine Bacteria Urine Mucus Ur Culture Indicated? Blood Type A POSITIVE Antibody Screen Negative 11/08/16 11/08/16 11/08/16 10:29 11:59 14:15 WBC RBC Hgb Hct MCV MCH MCHC RDW Plt Count MPV Neut % (Auto) Lymph % (Auto) [place] % (Auto) Eos % (Auto) Baso % (Auto) Neut # (Auto) Lymph # (Auto) [place] # (Auto) Eos # (Auto) Baso # (Auto) Immature Gran % Nucleated RBC % Immature Gran # Nucleated RBCs # Immature Plt Fraction INR PT Patient/Control Mix Sodium Potassium Chloride Carbon Dioxide Anion Gap BUN Creatinine GFR Calculation BUN/Creatinine Ratio Glucose POC Glucose 102 Hemoglobin A1c Calculated Osmolality Lactic Acid 1.2 Calcium Magnesium Total Creatine Kinase CK-MB (CK-2) Troponin I Urine Color Yellow Urine Appearance Clear Urine pH 6.0 Ur Specific [place] 1.056 H Urine Protein 100 Urine Glucose (UA) Negative Urine Ketones 20 Urine Blood Negative Urine Nitrate Negative Urine Bilirubin Negative Urine Urobilinogen < 2.0 H Urine Leukocytes Negative Urine RBC 4 Urine WBC 2 Ur Squamous Epith Cells Occasional Urine Bacteria Occasional Urine Mucus Occasional Ur Culture Indicated? Not indicated Blood Type Antibody Screen 11/08/16 11/08/16 11/08/16 18:01 23:31 Unknown WBC RBC Hgb Hct MCV MCH MCHC RDW Plt Count MPV Neut % (Auto) Lymph % (Auto) [place] % (Auto) Eos % (Auto) Baso % (Auto) Neut # (Auto) Lymph # (Auto) [place] # (Auto) Eos # (Auto) Baso # (Auto) Immature Gran % Nucleated RBC % Immature Gran # Nucleated RBCs # Immature Plt Fraction INR PT Patient/Control Mix Sodium Potassium Chloride Carbon Dioxide Anion Gap BUN Creatinine GFR Calculation BUN/Creatinine Ratio Glucose POC Glucose 117 H 108 H Hemoglobin A1c Calculated Osmolality Lactic Acid Calcium Magnesium Total Creatine Kinase CK-MB (CK-2) Troponin I Urine Color Urine Appearance Urine pH Ur Specific [place] Urine Protein Urine Glucose (UA) Urine Ketones Urine Blood Urine Nitrate Urine Bilirubin Urine Urobilinogen Urine Leukocytes Urine RBC Urine WBC Ur Squamous Epith Cells Urine Bacteria Urine Mucus Ur Culture Indicated? Blood Type A POSITIVE Antibody Screen 11/09/16 11/09/16 11/09/16 04:23 04:23 04:23 WBC 7.5 RBC 3.64 L Hgb 8.8 L Hct 25.8 L MCV 70.9 L MCH 24 L MCHC 34.1 RDW 15.9 Plt Count 174 MPV 11.6 Neut % (Auto) 73.5 Lymph % (Auto) 15.6 L [place] % (Auto) 10.3 Eos % (Auto) 0.1 Baso % (Auto) 0.1 Neut # (Auto) 5.5 Lymph # (Auto) 1.2 L [place] # (Auto) 0.8 Eos # (Auto) 0.0 Baso # (Auto) 0.0 Immature Gran % 0.4 Nucleated RBC % 0.0 Immature Gran # 0.03 Nucleated RBCs # 0.00 Immature Plt Fraction 0.0 INR PT Patient/Control Mix Sodium Potassium Chloride Carbon Dioxide Anion Gap BUN Creatinine GFR Calculation BUN/Creatinine Ratio Glucose POC Glucose Hemoglobin A1c 5.4 Calculated Osmolality Lactic Acid Calcium Magnesium 1.6 L Total Creatine Kinase CK-MB (CK-2) Troponin I Urine Color Urine Appearance Urine pH Ur Specific [place] Urine Protein Urine Glucose (UA) Urine Ketones Urine Blood Urine Nitrate Urine Bilirubin Urine Urobilinogen Urine Leukocytes Urine RBC Urine WBC Ur Squamous Epith Cells Urine Bacteria Urine Mucus Ur Culture Indicated? Blood Type Antibody Screen 11/09/16 11/09/16 04:23 06:34 WBC RBC Hgb Hct MCV MCH MCHC RDW Plt Count MPV Neut % (Auto) Lymph % (Auto) [place] % (Auto) Eos % (Auto) Baso % (Auto) Neut # (Auto) Lymph # (Auto) [place] # (Auto) Eos # (Auto) Baso # (Auto) Immature Gran % Nucleated RBC % Immature Gran # Nucleated RBCs # Immature Plt Fraction INR PT Patient/Control Mix Sodium 141 Potassium 3.2 L Chloride 106 Carbon Dioxide 28 Anion Gap 10.2 BUN 18 Creatinine 1.10 H GFR Calculation 72 BUN/Creatinine Ratio 16.00 Glucose 84 POC Glucose 97 Hemoglobin A1c Calculated Osmolality 281.3 Lactic Acid Calcium 8.8 Magnesium 1.7 L Total Creatine Kinase CK-MB (CK-2) Troponin I Urine Color Urine Appearance Urine pH Ur Specific [place] Urine Protein Urine Glucose (UA) Urine Ketones Urine Blood Urine Nitrate Urine Bilirubin Urine Urobilinogen Urine Leukocytes Urine RBC Urine WBC Ur Squamous Epith Cells Urine Bacteria Urine Mucus Ur Culture Indicated? Blood Type Antibody Screen - EKG EKG results: interpreted by me, no acute changes EKG shows: atrial fibrillation Quality Measures - VTE Contraindication to Mechanical VTE Prophylaxis: Vascular Ulceration IKai Attila, MD, personally performed the services described in this documentation, ascribed by Brinda Humphrey RN in my presence, and it is both accurate and complete [id number] .
[2016-11-09] MEDS: METOPROLOL TARTRATE 5 MG/5 ML VIAL IV PRN ×2 (15:53→20:16)
[2016-11-09] MEDS ORDERED: WARFARIN 3 MG TABLET PO SCH (18:00)
[2016-11-09] MEDS ORDERED: METOPROLOL TARTRATE 5 MG/5 ML VIAL IV SCH (18:00)
[2016-11-09] MEDS ORDERED: SODIUM CHLORIDE 0.9% 500 ML IV ONE (20:31)
[2016-11-10] MEDS: INSULIN LISPRO 100 UNIT/ML SUBCUT SCH ×5 (00:02→23:43)
[2016-11-10] MEDS: METOPROLOL TARTRATE 5 MG/5 ML VIAL IV PRN ×2 (00:03→05:58)
[2016-11-10] MEDS: METOCLOPRAMIDE 10 MG/2 ML VIAL IV SCH ×4 (00:59→20:38)
[2016-11-10] MEDS ORDERED: DILTIAZEM 100 MG VIAL.ADD IV ONE (01:40)
[2016-11-10] MEDS ORDERED: SODIUM CHLORIDE 0.9% 100 ML IV ONE (01:41)
[2016-11-10] MEDS: DILTIAZEM INJ 100 MG in SODIUM CHLORIDE 0.9% 100 ML IV SCH ×2 (01:44→09:23)
[2016-11-10 04:05] LABS: Basophils % 0.2 % (0.0-0.8); Eosinophils # 0.1 10*3/uL (0.0-0.87); Eosinophils % 1.4 % (0.00-10.9); Hematocrit 24.6 VOL% (35.7-47.0); Hemoglobin 8.3 GM/DL (12.0-16.0); Immature Granulocytes % 0.7 %; Immature Granulocytes Absolute 0.04 #; Lymphocytes # 1.1 10*3/uL (1.4-4.0); Lymphocytes % 19.2 % (21.3-54.2); Mean Corpuscular HGB Conc 33.7 GM/DL (32-36); Mean Corpuscular Hemoglobin 24 PG (27-34); Mean Corpuscular Volume 70.9 FL (87-102); Mean Platelet Volume 11.6 FL (9.6-12.0); Monocytes # 0.8 10*3/uL (0.11-0.8); NRBC # 0.02 10*3/uL; Neutrophils # 3.8 10*3/uL (1.4-7.4); Neutrophils % 65.5 % (38.7-73.9); Platelet Count 187 T/CUMM (130-400); Red Blood Count 3.47 MC/CUMM (3.8-5.5); Red Cell Distribution Width 15.9 % (9.3-17.3); White Blood Count 5.8 T/CUMM (4-12)
[2016-11-10 04:21] LABS: INR 2.2
[2016-11-10 04:26] LABS: PT Patient Result 24.1 SECS
[2016-11-10 04:32] LABS: Calcium 8.6 MG/DL (8.5-10.1); Osmolality,Calculated 279.4 MOS/KG (273-304); Potassium 3.2 MMOL/L (3.5-5.1)
[2016-11-10] MEDS: POTASSIUM CHLORIDE RIDER 10 MEQ in PREMIX 1 EACH IV PRN ×4 (04:50→07:56)
[2016-11-10] MEDS: LACTATED RINGERS 1,000 ML IV SCH (06:17)
--- NOTE | 2016-11-10 08:56 | Event Note ---
Status post ex lap for small bowel obstruction and repair of incisional hernia. Patient has done extremely well after surgery. She is only in the ICU because of A. fib with rapid rate. She takes a very large dose of diltiazem at home. She is currently on a diltiazem drip. She is tolerated her NG tube clamped for the last 24 hours without any nausea or vomiting. She has flatus. Her abdomen is soft appropriately tender and nondistended. Incision looks good. She has good bowel sounds. Will remove the NG tube and start clear liquids. Hopefully we can get her back on her p.o. medications soon and off the diltiazem drip and transferred to the floor this weekend. I suspect that once she is tolerating a regular diet she and her A. fib is controlled she can be discharged. We will recheck H&H tomorrow. Her Coumadin can be resumed once her hemoglobin has leveled off. I do not think she has any active bleeding.
--- NOTE | 2016-11-10 09:05 | Hospitalist Progress Note ---
Assessment and Plan (1) Type 2 diabetes mellitus Status: Acute Assessment and plan: She is being treated with sliding scale regular insulin coverage. Her blood glucose this morning is 187. Current Visit: No Qualifiers: Diabetes mellitus complication status: without complication (2) Small bowel obstruction Status: Acute Assessment and plan: She is stable day 2 postoperative exploratory laparotomy for lysis of abdominal adhesions and reduction of hernia. Current Visit: Yes Hospitalist: Subjective Interval history: She is stable day 2 status post exploratory laparotomy for lysis of abdominal adhesions and reduction of incarcerated inguinal hernia. She is tolerating liquids well. As per surgery note of yesterday, I will transfer her to the medical floor. Exam - Constitutional Vitals: Period Temp Pulse Resp BP Sys/Mehta Pulse Ox Last 24 Hr 97.4 F-99.4 F 94-149 14-28 104-160/68-109 90-98 General appearance: no acute distress - Head Head exam: Present: normal inspection - Neck Neck exam: Present: normal inspection - Respiratory Respiratory exam: Present: clear to auscultation bilaterally - Cardiovascular Cardiovascular exam: Present: regular rate and rhythm - GI/Abdominal GI/Abdominal exam: Present: normal bowel sounds, other (Well-healing abdominal incision.) - Extremities Exam Extremities exam: Present: normal inspection - Neurological Exam Neurological exam: Present: alert, oriented X3 - Skin Skin exam: Present: normal color, warm, intact Results - Labs CBC & BMP: 11/10/16 03:18 11/10/16 03:18 Quality Measures - VTE Contraindication to Mechanical VTE Prophylaxis: Vascular Ulceration
[2016-11-10] MEDS: DILTIAZEM 30 MG TABLET PO SCH (09:22)
[2016-11-10] MEDS ORDERED: NAPROXEN 500 MG TABLET PO PRN (09:48)
[2016-11-10] MEDS ORDERED: tiZANidine 4 MG TABLET PO PRN (09:48)
[2016-11-10] MEDS: DILTIAZEM CD 240 MG CAPSULE PO SCH ×2 (10:06→20:34)
[2016-11-10] MEDS ORDERED: DILTIAZEM 60 MG TABLET PO SCH ×2 (11:00→11:30)
[2016-11-10] MEDS ORDERED: DIGOXIN 0.5 MG/2 ML AMP IV ONE ×2 (11:01→18:00)
--- NOTE | 2016-11-10 11:01 | Cardiology Progress Note ---
Kam Padron Vanessa, RN, am scribing for, and in the presence of, Satinder Quinn MD 10 :58. Assessment and Plan - Time spent with patient Time spent with patient: Greater than 30 minutes (1) Atrial fibrillation with RVR Status: Acute Assessment and plan: 66-year-old BF with PMHx of chronic AF, HLD, DM, HTN, DVT, hypothyroidism, DONNELL, and CHF. LV EF 45-50% on echo 03/17. Admitted with SBO and incarcerated umbilical hernia now s/p exp laparotomy and hernia repair. Episode of A. fib with RVR during acute illness. -AFRVR - Despite max dose po cardizem and bystolic. EF preserved. Dilated RV, chronic. Suspect poor absoption. AF chronic. -Start iv digoxin load. -ANTICOAGULATION -resumed Coumadin, follow INR. 2.2 today. -HYPERTENSION -remains mildly elevated at times. Use IV metoprolol, before IV hydralazine, to avoid reflex tachycardia -DONNELL - Continue CPAP -DYSLIPIDEMIA - Statin on hold. May restart when recovers from acute illness and LFTs normal. -HYPOTHYROIDISM - Resume thyroid supplement if tolerating clear liquid diet today. Current Visit: No (2) Hypothyroidism Status: Chronic Assessment and plan: SEE PLAN OF CARE LISTED ABOVE. Current Visit: Yes (3) Obstructive sleep apnea Status: Chronic Assessment and plan: SEE PLAN OF CARE LISTED ABOVE. Current Visit: Yes (4) Chronic anticoagulation Status: Chronic Current Visit: No (5) Chronic atrial fibrillation Status: Chronic Assessment and plan: SEE PLAN OF CARE LISTED ABOVE. Current Visit: No (6) Venous stasis of both lower extremities Status: Chronic Assessment and plan: SEE PLAN OF CARE LISTED ABOVE. Current Visit: No (7) Diabetes Status: Chronic Assessment and plan: SEE PLAN OF CARE LISTED ABOVE. Current Visit: No (8) Dyslipidemia Status: Chronic Assessment and plan: SEE PLAN OF CARE LISTED ABOVE. Current Visit: No (9) History of DVT (deep vein thrombosis) Status: Chronic Assessment and plan: SEE PLAN OF CARE LISTED ABOVE. Current Visit: No (10) History of rheumatoid arthritis Status: Chronic Assessment and plan: SEE PLAN OF CARE LISTED ABOVE. Current Visit: No (11) Hypertension Status: Chronic Assessment and plan: SEE PLAN OF CARE LISTED ABOVE. Current Visit: No (12) Small bowel obstruction Status: Acute Assessment and plan: SEE PLAN OF CARE LISTED ABOVE. Current Visit: Yes (13) Hypokalemia Status: Acute Assessment and plan: SEE PLAN OF CARE LISTED ABOVE. Current Visit: Yes (14) Umbilical hernia, incarcerated Status: Acute Assessment and plan: SEE PLAN OF CARE LISTED ABOVE. 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 Chronic anticoagulation with Coumadin. She is currently admitted with small bowel obstruction and incarcerated incisional hernia. She required admission and observation in ICU due to AFRVR during acute illness and has been maintained on IV Cardizem for rate control. Patient taken to the OR on 11/08 for exploratory lap with adhesion lysis and hernia repair. Echo this admission with normal LV systolic function, EF 55%, severe biatrial dilation, moderate pulmonary hypertension. Cardiology was asked to see for management of atrial fibrillation. October: POD #2 s/p exp lap and hernia repair. Overnight, had atrial fib RVR in 150s and placed back on IV Cardizem infusion. Ventricular response this morning in the 90s. SBP 120-140 mmHg. Patient up in chair this morning and appears comfortable. She is not having any chest pain, shortness of breath, palpitations, or other complaint at this time. Hypokalemia with K+ 3.2. Exam (Progress Note) - Constitutional Vitals: Period Temp Pulse Resp BP Sys/Mehta Pulse Ox Last 24 Hr 97.4 F-99.4 F 94-149 14-28 104-160/68-109 90-98 Exam: General: Present: No Apparent Distress, Other (obese) Neck: Present: Supple Neck, Midline Trachea, No Bruit Cardiac: Present: Irregularly Regular, No Murmur, Tachycardia. Absent: Bradycardia Lungs: Present: Clear Ascult./Percussion, Oxygen, No Wheeze, Rales, Rhonchi Neuro: Present: Grossly Intact. Absent: Tingling, Weakness, Resting Tremor Abdomen: Present: Soft, Decreased Bowel Sounds, abdominal incision with dry/ intact dsg, binder covering. Skin: Absent: cyanosis, diaphoresis Musculoskeletal: Present: Decreased Range of Motion Extremities: Present: No Edema, Normal Upper Extr. Pulses (2+ bilaterally), Normal Lower Extr. Pulses (Popliteal 2+ bilaterally), Capillary Refill (Normal) , Other (BLEs with dry/intact dressings covering BLE ulcers; venous stasis changes noted) Result/EKG - Labs CBC & BMP: 11/10/16 03:18 11/10/16 03:18 Lab Results: I have reviewed the past 24 hour labs Labs: Laboratory Results - last 24 hr 11/09/16 11/09/16 11/09/16 08:10 11:21 17:32 WBC RBC Hgb Hct MCV MCH MCHC RDW Plt Count MPV Neut % (Auto) Lymph % (Auto) [place] % (Auto) Eos % (Auto) Baso % (Auto) Neut # (Auto) Lymph # (Auto) [place] # (Auto) Eos # (Auto) Baso # (Auto) Immature Gran % Nucleated RBC % Immature Gran # Nucleated RBCs # Immature Plt Fraction INR PT Patient/Control Mix Sodium Potassium Chloride Carbon Dioxide Anion Gap BUN Creatinine GFR Calculation BUN/Creatinine Ratio Glucose POC Glucose 90 91 94 Calculated Osmolality Calcium Magnesium 11/09/16 11/10/16 11/10/16 23:52 00:59 03:18 WBC RBC Hgb Hct MCV MCH MCHC RDW Plt Count MPV Neut % (Auto) Lymph % (Auto) [place] % (Auto) Eos % (Auto) Baso % (Auto) Neut # (Auto) Lymph # (Auto) [place] # (Auto) Eos # (Auto) Baso # (Auto) Immature Gran % Nucleated RBC % Immature Gran # Nucleated RBCs # Immature Plt Fraction INR 2.2 PT Patient/Control Mix 24.1 D Sodium Potassium Chloride Carbon Dioxide Anion Gap BUN Creatinine GFR Calculation BUN/Creatinine Ratio Glucose POC Glucose 76 86 Calculated Osmolality Calcium Magnesium 11/10/16 11/10/16 11/10/16 03:18 03:18 03:18 WBC 5.8 RBC 3.47 L Hgb 8.3 L Hct 24.6 L MCV 70.9 L MCH 24 L MCHC 33.7 RDW 15.9 Plt Count 187 MPV 11.6 Neut % (Auto) 65.5 Lymph % (Auto) 19.2 L [place] % (Auto) 13.0 H Eos % (Auto) 1.4 Baso % (Auto) 0.2 Neut # (Auto) 3.8 Lymph # (Auto) 1.1 L [place] # (Auto) 0.8 Eos # (Auto) 0.1 Baso # (Auto) 0.0 Immature Gran % 0.7 Nucleated RBC % 0.3 Immature Gran # 0.04 Nucleated RBCs # 0.02 Immature Plt Fraction 0.0 INR PT Patient/Control Mix Sodium 140 Potassium 3.2 L Chloride 105 Carbon Dioxide 27 Anion Gap 11.2 BUN 19 H Creatinine 1.00 GFR Calculation 82 BUN/Creatinine Ratio 19.00 Glucose 81 POC Glucose Calculated Osmolality 279.4 Calcium 8.6 Magnesium 2.0 11/10/16 05:20 WBC RBC Hgb Hct MCV MCH MCHC RDW Plt Count MPV Neut % (Auto) Lymph % (Auto) [place] % (Auto) Eos % (Auto) Baso % (Auto) Neut # (Auto) Lymph # (Auto) [place] # (Auto) Eos # (Auto) Baso # (Auto) Immature Gran % Nucleated RBC % Immature Gran # Nucleated RBCs # Immature Plt Fraction INR PT Patient/Control Mix Sodium Potassium Chloride Carbon Dioxide Anion Gap BUN Creatinine GFR Calculation BUN/Creatinine Ratio Glucose POC Glucose 82 Calculated Osmolality Calcium Magnesium - EKG EKG results: interpreted by me EKG shows: atrial fibrillation Quality Measures - VTE Contraindication to Mechanical VTE Prophylaxis: Vascular Ulceration Kai Padron Attila, MD, personally performed the services described in this documentation, ascribed by Brinda Humphrey RN in my presence, and it is both accurate and complete .
[2016-11-10] MEDS: POLYETHYLENE GLYCOL POWDER 17 GM PACK PO SCH ×2 (16:03→20:34)
[2016-11-10] MEDS: GABAPENTIN 300 MG CAPSULE PO SCH ×2 (16:03→20:34)
[2016-11-10] MEDS: PENTOXIFYLLINE 400 MG TABLET PO SCH ×2 (16:03→20:34)
[2016-11-10] MEDS: GENTAMICIN 0.1% OINT 15 GM TUBE TOP SCH (16:03)
[2016-11-10] MEDS: ACETIC ACID 0.25% IRRIGATION 1,000 ML BOTTLE IRRIG SCH (16:03)
[2016-11-11] MEDS: METOCLOPRAMIDE 10 MG/2 ML VIAL IV SCH ×4 (01:12→20:35)
[2016-11-11] MEDS: DILTIAZEM INJ 100 MG in SODIUM CHLORIDE 0.9% 100 ML IV SCH (02:57)
[2016-11-11 03:26] LABS: Hematocrit 29.5 VOL% (35.7-47.0); Hemoglobin 9.9 GM/DL (12.0-16.0)
[2016-11-11] MEDS: LEVOTHYROXINE 150 MCG TABLET PO SCH (06:23)
[2016-11-11] MEDS: LACTATED RINGERS 1,000 ML IV SCH (06:35)
[2016-11-11] MEDS: INSULIN LISPRO 100 UNIT/ML SUBCUT SCH ×3 (06:35→18:39)
[2016-11-11] MEDS: metFORMIN 850 MG TABLET PO SCH (09:09)
[2016-11-11] MEDS: FUROSEMIDE 40 MG TABLET PO SCH (09:10)
--- NOTE | 2016-11-11 09:25 | Event Note ---
11/11/2016. 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 Once the supervisor inspection room left [place] we have not been able to successfully get her to [place] to a supervisor inspection room for follow-up on her arthritis. She is always maintained high rheumatoid factors despite medication since she has been home. She is getting wound care to her legs at this time and be ideal to see about getting the new supervisor inspection room to see if he did pick her up and follow and see if we can get this process under control. Patient is postop repair of a ventral incisional hernia with mesh. Abdomen is soft there is hypoactive bowel sounds incision looks clean and dry she seems to be tolerating the diet well at this time.
[2016-11-11] MEDS: POLYETHYLENE GLYCOL POWDER 17 GM PACK PO SCH ×3 (09:34→20:38)
[2016-11-11] MEDS: OMEGA 3 ACID ETHYL ESTERS 1 GM CAPSULE PO SCH (09:34)
[2016-11-11] MEDS: PANTOPRAZOLE 40 MG TABLET PO SCH (09:34)
[2016-11-11] MEDS: DILTIAZEM CD 240 MG CAPSULE PO SCH ×2 (09:34→20:37)
[2016-11-11] MEDS: QUINAPRIL 20 MG TABLET PO SCH (09:35)
[2016-11-11] MEDS: FOLIC ACID 1 MG TABLET PO SCH (09:35)
[2016-11-11] MEDS: GABAPENTIN 300 MG CAPSULE PO SCH ×3 (09:35→20:38)
[2016-11-11] MEDS: predniSONE 5 MG TABLET PO SCH (09:36)
[2016-11-11] MEDS: NEBIVOLOL 10 MG TABLET PO SCH (09:36)
[2016-11-11] MEDS: PENTOXIFYLLINE 400 MG TABLET PO SCH ×3 (09:36→20:38)
[2016-11-11] MEDS: SPIRONOLACTONE 25 MG TABLET PO SCH (09:37)
[2016-11-11] MEDS: POTASSIUM CHLORIDE 20 MEQ TABLET PO SCH (09:37)
--- NOTE | 2016-11-11 09:44 | Cardiology Progress Note ---
Assessment and Plan (1) Atrial fibrillation with RVR Status: Acute Assessment and plan: She has chronic atrial fibrillation I think we will try some IV medication along with her p.o. medicines if this will help. Suspicious of poor absorption. Current Visit: No (2) Anemia of chronic disease Status: Chronic Assessment and plan: No change. This is stable. Current Visit: No (3) Chronic anticoagulation Status: Chronic Assessment and plan: We will check an INR tomorrow. Current Visit: No (4) Hypertension Status: Chronic Assessment and plan: Blood pressures fairly stable. The upper little bit more we would like. Again this is reflection I think of her poor absorption. Current Visit: No (5) Chronic atrial fibrillation Status: Chronic Assessment and plan: She is having issues with rapid ventricular spots I think this is multifactorial including probably poor absorption. Current Visit: No (6) Postoperative abdominal hernia Status: Acute Assessment and plan: She is fairly stable from this. Current Visit: Yes Cardiology - PN: Subj Interval history: Patient generally is doing well without any specific complaints. No chest pain. Has a little episode of shortness of breath. She has some chronic lung disease with wheezing. Her heart rates still high with her atrial fibrillation. She is on multiple medications. Certainly this raises the issue that she has poor absorption. She has had GI surgery recently. He is not receiving bronchodilators on a routine basis thus this should not be contributing to her increased heart rates. We may have to use unorthodox oral medication and continue IV medication on a as needed basis. Will reevaluate her medications and make changes. Exam (Progress Note) - Constitutional Vitals: Period Temp Pulse Resp BP Sys/Mehta Pulse Ox Last 24 Hr 97.5 F-98.7 F 89-121 18-31 115-155/77-105 91-100 Exam: General appearance: Obese, no acute distress HEENT exam: normal inspection, atraumatic Neck exam: normal inspection no JVD. No carotid bruit. Trachea is in midline Respiratory/lungs exam: clear to auscultation bilaterally anteriorly with exception of some end expiratory wheezes but no labored breathing. Cardiovascular exam: regular rate and rhythm, no murmur or gallop or rub. No precordial lift. Chest wall exam: nontender GI/Abdominal exam: Postop. Extremeties/musculoskeletal: Both legs were wrapped. Neurological exam: alert, oriented X3, no focal deficits Psychiatric exam: normal affect, normal mood. Cognitive function is grossly normal. Skin exam: normal color, warm Result/EKG - Labs CBC & BMP: 11/11/16 02:33 11/10/16 03:18 Labs: Laboratory Results - last 24 hr 11/10/16 11/10/16 11/10/16 11:11 18:42 23:25 Hgb Hct POC Glucose 159 H 120 H 116 H 11/11/16 11/11/16 02:33 06:04 Hgb 9.9 L Hct 29.5 L POC Glucose 108 H - Impressions Impressions: Atrial fibrillation with RVR. Quality Measures - VTE Contraindication to Mechanical VTE Prophylaxis: Vascular Ulceration
[2016-11-11] MEDS ORDERED: DIGOXIN 0.5 MG/2 ML AMP IV ONE (09:49)
--- NOTE | 2016-11-11 11:06 | Hospitalist Progress Note ---
Assessment and Plan (1) Type 2 diabetes mellitus Status: Acute Assessment and plan: She is being treated with sliding scale regular insulin coverage. Her blood glucose this morning is 81. She has been restarted on her previous Metformin 850 mg p.o. twice daily. Current Visit: No Qualifiers: Diabetes mellitus complication status: without complication (2) Small bowel obstruction Status: Acute Assessment and plan: She is stable day 3 postoperative exploratory laparotomy for lysis of abdominal adhesions and reduction of hernia. She is doing well. She is tolerating her liquid diet with no problems. She continues to be followed by surgery. Current Visit: Yes (3) Atrial fibrillation with RVR Status: Acute Assessment and plan: Her heart rate today is 10 4/min. She has been restarted on her warfarin. I will defer to cardiology for further adjustments of her medications. Current Visit: No (4) Hypertension Status: Chronic Assessment and plan: Her blood pressure today is 146/100. I will defer to cardiology for appropriate adjustments of her medications. Current Visit: No Qualifiers: Hypertension type: essential hypertension Qualified Code(s): I10 - Essential (primary) hypertension Hospitalist: Subjective Interval history: Patient is doing well. She is tolerating a liquid diet with no problems. There have been no significant events overnight. She has been hypertensive with blood pressure 146/100 and tachycardic with heart rate 10 4/min. Cardiology is adjusting her medications for better blood pressure and heart rate control. Exam - Constitutional Vitals: Period Temp Pulse Resp BP Sys/Mehta Pulse Ox Last 24 Hr 97.5 F-98.7 F 89-109 18-31 115-155/77-105 91-100 General appearance: no acute distress - Head Head exam: Present: normal inspection - Neck Neck exam: Present: normal inspection - Respiratory Respiratory exam: Present: clear to auscultation bilaterally - Cardiovascular Cardiovascular exam: Present: irregular rhythm, tachycardia - GI/Abdominal GI/Abdominal exam: Present: normal bowel sounds, soft, other (Abdominal incision is healing well.) - Extremities Exam Extremities exam: Present: normal inspection - Neurological Exam Neurological exam: Present: alert, oriented X3 - Skin Skin exam: Present: normal color, warm, intact Results - Labs CBC & BMP: 11/11/16 02:33 11/10/16 03:18 Quality Measures - VTE Contraindication to Mechanical VTE Prophylaxis: Vascular Ulceration
[2016-11-11] MEDS: METOPROLOL TARTRATE 5 MG/5 ML VIAL IV SCH ×2 (12:00→17:37)
[2016-11-11] MEDS: CYANOCOBALAMIN 100 MCG TABLET PO SCH (12:56)
[2016-11-11] MEDS: DIGOXIN 0.25 MG TABLET PO SCH (17:34)
[2016-11-11] MEDS: WARFARIN 3 MG TABLET PO SCH (17:41)
[2016-11-12] MEDS: INSULIN LISPRO 100 UNIT/ML SUBCUT SCH ×5 (00:27→23:39)
[2016-11-12] MEDS: METOPROLOL TARTRATE 5 MG/5 ML VIAL IV SCH ×4 (00:31→18:03)
[2016-11-12] MEDS: METOCLOPRAMIDE 10 MG/2 ML VIAL IV SCH ×4 (02:16→20:55)
[2016-11-12 03:17] LABS: Basophils % 0.1 % (0.0-0.8); Eosinophils # 0.3 10*3/uL (0.0-0.87); Eosinophils % 3.5 % (0.00-10.9); Hematocrit 26.2 VOL% (35.7-47.0); Hemoglobin 8.7 GM/DL (12.0-16.0); Immature Granulocytes % 0.6 %; Immature Granulocytes Absolute 0.04 #; Lymphocytes # 1.4 10*3/uL (1.4-4.0); Lymphocytes % 19.7 % (21.3-54.2); Mean Corpuscular HGB Conc 33.2 GM/DL (32-36); Mean Corpuscular Hemoglobin 24 PG (27-34); Mean Platelet Volume 10.9 FL (9.6-12.0); Monocytes # 0.8 10*3/uL (0.11-0.8); Monocytes % 11.5 % (1.7-12.7); Neutrophils # 4.6 10*3/uL (1.4-7.4); Neutrophils % 64.6 % (38.7-73.9); Platelet Count 207 T/CUMM (130-400); Red Blood Count 3.64 MC/CUMM (3.8-5.5); Red Cell Distribution Width 16.1 % (9.3-17.3); White Blood Count 7.1 T/CUMM (4-12)
[2016-11-12] MEDS: DILTIAZEM INJ 100 MG in SODIUM CHLORIDE 0.9% 100 ML IV SCH (03:22)
[2016-11-12 03:27] LABS: INR 2.2
[2016-11-12 03:32] LABS: PT Patient Result 24.1 SECS
[2016-11-12 03:47] LABS: Calcium 8.4 MG/DL (8.5-10.1); Osmolality,Calculated 275.7 MOS/KG (273-304); Potassium 4.1 MMOL/L (3.5-5.1)
[2016-11-12] MEDS: LACTATED RINGERS 1,000 ML IV SCH (05:50)
[2016-11-12] MEDS: LEVOTHYROXINE 150 MCG TABLET PO SCH (06:25)
--- NOTE | 2016-11-12 07:55 | Cardiology Progress Note ---
Assessment and Plan (1) Atrial fibrillation with RVR Status: Acute Assessment and plan: She has chronic atrial fibrillation I think we will try some IV medication along with her p.o. medicines if this will help. Suspicious of poor absorption. Since yesterday that was a change in her medications her heart rates are much better. Current Visit: No (2) Anemia of chronic disease Status: Chronic Assessment and plan: No change. This is stable. H&H a little lower today. Current Visit: No (3) Chronic anticoagulation Status: Chronic Assessment and plan: INR is 2.2 today and is stable over the last 2 days. Current Visit: No (4) Hypertension Status: Chronic Assessment and plan: Blood pressures fairly stable. We will continue to monitor this. Current Visit: No Qualifiers: Hypertension type: essential hypertension Qualified Code(s): I10 - Essential (primary) hypertension (5) Chronic atrial fibrillation Status: Chronic Assessment and plan: Heart rates are better today since change her medications. Current Visit: No (6) Postoperative abdominal hernia Status: Acute Assessment and plan: She is fairly stable from this. Current Visit: Yes (7) COPD (chronic obstructive pulmonary disease) Status: Chronic Assessment and plan: This is based on her chart information. Not clear if this is a true diagnosis. She is having some wheezing. Some this may be a little bit of fluid overload and will give her a dose of Lasix. Current Visit: Yes (8) Obstructive sleep apnea Status: Chronic Assessment and plan: Requested that she bring her CPAP machine from home. Current Visit: Yes Cardiology - PN: Subj Interval history: Patient generally is doing fairly well. She feels a little short of breath. She has not had any chest pain. Her heart rates are much better right now but this present medical regimen. She is having a little wheezing. She has obstructive sleep apnea but does not have her CPAP machine. I have encouraged her to have that brought here. She is already on by systolic which should not interfere with her respiratory issues. She has COPD and I think maybe adding some Xopenex may be of benefit and hopefully not affect her heart rates. Cardiac ramirez she is stable. Her lab work is really unremarkable's point. Her hematocrit is down a little bit. Creatinine is 1.1 and is stable. Exam (Progress Note) - Constitutional Vitals: Period Temp Pulse Resp BP Sys/Mehta Pulse Ox Last 24 Hr 97.9 F-98.8 F 58-106 18-20 122-154/77-100 83-100 Exam: General appearance: Obese, no acute distress HEENT exam: normal inspection, atraumatic Neck exam: normal inspection no JVD. No carotid bruit. Trachea is in midline Respiratory/lungs exam: clear to auscultation bilaterally anteriorly with exception of some end expiratory wheezes but no labored breathing. Cardiovascular exam: regular rate and rhythm, no murmur or gallop or rub. No precordial lift. Chest wall exam: nontender GI/Abdominal exam: Postop. Extremeties/musculoskeletal: Both legs were wrapped. Neurological exam: alert, oriented X3, no focal deficits Psychiatric exam: normal affect, normal mood. Cognitive function is grossly normal. Skin exam: normal color, warm Result/EKG - Labs CBC & BMP: 11/12/16 02:19 11/12/16 02:19 Lab Results: I have reviewed the past 24 hour labs Labs: Laboratory Results - last 24 hr 11/11/16 11/11/16 11/11/16 12:33 18:07 23:45 WBC RBC Hgb Hct MCV MCH MCHC RDW Plt Count MPV Neut % (Auto) Lymph % (Auto) [place] % (Auto) Eos % (Auto) Baso % (Auto) Neut # (Auto) Lymph # (Auto) [place] # (Auto) Eos # (Auto) Baso # (Auto) Immature Gran % Nucleated RBC % Immature Gran # Nucleated RBCs # Immature Plt Fraction INR PT Patient/Control Mix Sodium Potassium Chloride Carbon Dioxide Anion Gap BUN Creatinine GFR Calculation BUN/Creatinine Ratio Glucose POC Glucose 135 H 129 H 124 H Calculated Osmolality Calcium Magnesium Rheumatoid Factor 11/12/16 11/12/16 11/12/16 02:15 02:19 02:19 WBC 7.1 RBC 3.64 L Hgb 8.7 L Hct 26.2 L MCV 72.0 L MCH 24 L MCHC 33.2 RDW 16.1 Plt Count 207 MPV 10.9 Neut % (Auto) 64.6 Lymph % (Auto) 19.7 L [place] % (Auto) 11.5 Eos % (Auto) 3.5 Baso % (Auto) 0.1 Neut # (Auto) 4.6 Lymph # (Auto) 1.4 [place] # (Auto) 0.8 Eos # (Auto) 0.3 Baso # (Auto) 0.0 Immature Gran % 0.6 Nucleated RBC % 0.0 Immature Gran # 0.04 Nucleated RBCs # 0.00 Immature Plt Fraction 0.0 INR PT Patient/Control Mix Sodium 138 Potassium 4.1 Chloride 105 Carbon Dioxide 27 Anion Gap 10.1 BUN 16 Creatinine 1.10 H GFR Calculation 73 BUN/Creatinine Ratio 14.00 Glucose 97 POC Glucose 121 H Calculated Osmolality 275.7 Calcium 8.4 L Magnesium 2.0 Rheumatoid Factor 262 H 11/12/16 11/12/16 02:19 05:33 WBC RBC Hgb Hct MCV MCH MCHC RDW Plt Count MPV Neut % (Auto) Lymph % (Auto) [place] % (Auto) Eos % (Auto) Baso % (Auto) Neut # (Auto) Lymph # (Auto) [place] # (Auto) Eos # (Auto) Baso # (Auto) Immature Gran % Nucleated RBC % Immature Gran # Nucleated RBCs # Immature Plt Fraction INR 2.2 PT Patient/Control Mix 24.1 Sodium Potassium Chloride Carbon Dioxide Anion Gap BUN Creatinine GFR Calculation BUN/Creatinine Ratio Glucose POC Glucose 112 H Calculated Osmolality Calcium Magnesium Rheumatoid Factor - Impressions Impressions: Telemetry with atrial fibrillation with controlled ventricular response. Quality Measures - VTE Contraindication to Mechanical VTE Prophylaxis: Vascular Ulceration
[2016-11-12] MEDS ORDERED: FUROSEMIDE 40 MG/4 ML VIAL IV ONE (08:01)
[2016-11-12] MEDS: metFORMIN 850 MG TABLET PO SCH (08:36)
--- NOTE | 2016-11-12 09:37 | Event Note ---
11/12/2016 0930 hrs. Patient appears to be afebrile vital signs are stable. She is sitting up the legs hanging down and sleeping in a reclined position. The dressings are legs are intact but slipping down. The abdomen looks soft incision clean and dry bowel sounds are hypoactive no bowel movement yet. Patient does seem to be tolerating her diet so far. Patient appears to be stable.
[2016-11-12] MEDS: predniSONE 5 MG TABLET PO SCH (10:17)
[2016-11-12] MEDS: PENTOXIFYLLINE 400 MG TABLET PO SCH ×3 (10:17→20:54)
[2016-11-12] MEDS: GABAPENTIN 300 MG CAPSULE PO SCH ×3 (10:17→20:54)
[2016-11-12] MEDS: FUROSEMIDE 40 MG TABLET PO SCH (10:18)
[2016-11-12] MEDS: PANTOPRAZOLE 40 MG TABLET PO SCH (10:18)
[2016-11-12] MEDS: POTASSIUM CHLORIDE 20 MEQ TABLET PO SCH (10:18)
[2016-11-12] MEDS: DILTIAZEM CD 240 MG CAPSULE PO SCH ×2 (10:19→20:54)
[2016-11-12] MEDS: SPIRONOLACTONE 25 MG TABLET PO SCH (10:20)
[2016-11-12] MEDS: POLYETHYLENE GLYCOL POWDER 17 GM PACK PO SCH ×3 (10:20→20:55)
[2016-11-12] MEDS: OMEGA 3 ACID ETHYL ESTERS 1 GM CAPSULE PO SCH (10:21)
[2016-11-12] MEDS: NEBIVOLOL 10 MG TABLET PO SCH (10:21)
[2016-11-12] MEDS: FOLIC ACID 1 MG TABLET PO SCH (10:22)
[2016-11-12] MEDS: QUINAPRIL 20 MG TABLET PO SCH (10:22)
[2016-11-12] MEDS: CYANOCOBALAMIN 100 MCG TABLET PO SCH (10:28)
--- NOTE | 2016-11-12 11:35 | Hospitalist Progress Note ---
Assessment and Plan (1) Type 2 diabetes mellitus Status: Acute Assessment and plan: She is being treated with sliding scale regular insulin coverage. Her blood glucose this morning is 117. She has been restarted on her previous Metformin 850 mg p.o. twice daily. Current Visit: No Qualifiers: Diabetes mellitus complication status: without complication (2) Small bowel obstruction Status: Acute Assessment and plan: She is stable day 4 postoperative exploratory laparotomy for lysis of abdominal adhesions and reduction of hernia. She is doing well. She is tolerating her liquid diet with no problems. She continues to be followed by surgery. Current Visit: Yes (3) Atrial fibrillation with RVR Status: Acute Assessment and plan: Her heart rate today is 10 4/min. She has been restarted on her warfarin. I will defer to cardiology for further adjustments of her medications. Current Visit: No (4) Hypertension Status: Chronic Assessment and plan: Her blood pressure today is 117/71. I will defer to cardiology for appropriate adjustments of her medications. Current Visit: No Qualifiers: Hypertension type: essential hypertension Qualified Code(s): I10 - Essential (primary) hypertension Hospitalist: Subjective Interval history: She is doing well. She is tolerating her diet without problems. She is only complaining of mild postoperative pain. Exam - Constitutional Vitals: Period Temp Pulse Resp BP Sys/Mehta Pulse Ox Last 24 Hr 97.9 F-98.8 F 58-106 17-20 117-154/71-93 83-100 General appearance: no acute distress - Head Head exam: Present: normal inspection - Neck Neck exam: Present: normal inspection - Respiratory Respiratory exam: Present: clear to auscultation bilaterally - Cardiovascular Cardiovascular exam: Present: regular rate and rhythm - GI/Abdominal GI/Abdominal exam: Present: normal bowel sounds, soft, other (Abdominal incision is healing well.) - Extremities Exam Extremities exam: Present: normal inspection - Neurological Exam Neurological exam: Present: alert, oriented X3 - Skin Skin exam: Present: normal color, warm, intact Results - Labs CBC & BMP: 11/12/16 02:19 11/12/16 02:19 Quality Measures - VTE Contraindication to Mechanical VTE Prophylaxis: Vascular Ulceration
[2016-11-12] MEDS: DIGOXIN 0.25 MG TABLET PO SCH (13:31)
[2016-11-12] MEDS: ALBUTEROL 2.5 MG/3 ML NEB RESP TX SCH ×2 (14:00→19:50)
[2016-11-12] MEDS: ACETIC ACID 0.25% IRRIGATION 1,000 ML BOTTLE IRRIG SCH ×2 (15:15→18:06)
[2016-11-12] MEDS: GENTAMICIN 0.1% OINT 15 GM TUBE TOP SCH ×2 (15:15→18:07)
[2016-11-12] MEDS: WARFARIN 3 MG TABLET PO SCH (18:02)
[2016-11-13] MEDS: ALBUTEROL 2.5 MG/3 ML NEB RESP TX SCH ×2 (00:13→07:00)
[2016-11-13] MEDS: METOPROLOL TARTRATE 5 MG/5 ML VIAL IV SCH ×3 (00:17→12:22)
[2016-11-13] MEDS: METOCLOPRAMIDE 10 MG/2 ML VIAL IV SCH ×2 (01:33→08:59)
[2016-11-13] MEDS: DILTIAZEM INJ 100 MG in SODIUM CHLORIDE 0.9% 100 ML IV SCH (03:14)
[2016-11-13] MEDS: LEVOTHYROXINE 150 MCG TABLET PO SCH (06:00)
[2016-11-13] MEDS: INSULIN LISPRO 100 UNIT/ML SUBCUT SCH ×2 (06:00→11:22)
[2016-11-13] MEDS: LACTATED RINGERS 1,000 ML IV SCH (06:03)
--- NOTE | 2016-11-13 08:05 | XRay Report ---
XR chest 2V Indication: Shortness of breath. Fluid overload. Chest 2 views: Comparison 11/08/2016. Cardiomegaly is unchanged with continued thoracic aortic tortuosity. There is continued pulmonary vascular congestion, and in general, slight increase in diffuse interstitial prominence of the lungs consistent with mild worsening fluid overload. No focal infiltrates. Impression: Slight progression of CHF. PROCEDURE INTERPRETED AT [facility] DEPARTMENT OF RADIOLOGY Final Report Signed by: Archie Hu M.D.
[2016-11-13] MEDS: SPIRONOLACTONE 25 MG TABLET PO SCH (08:56)
[2016-11-13] MEDS: NEBIVOLOL 10 MG TABLET PO SCH (08:56)
[2016-11-13] MEDS: QUINAPRIL 20 MG TABLET PO SCH (08:56)
[2016-11-13] MEDS: FUROSEMIDE 40 MG TABLET PO SCH (08:56)
[2016-11-13] MEDS: OMEGA 3 ACID ETHYL ESTERS 1 GM CAPSULE PO SCH (08:56)
[2016-11-13] MEDS: POTASSIUM CHLORIDE 20 MEQ TABLET PO SCH (08:57)
[2016-11-13] MEDS: FOLIC ACID 1 MG TABLET PO SCH (08:57)
[2016-11-13] MEDS: PENTOXIFYLLINE 400 MG TABLET PO SCH (08:57)
[2016-11-13] MEDS: predniSONE 5 MG TABLET PO SCH (08:57)
[2016-11-13] MEDS: DILTIAZEM CD 240 MG CAPSULE PO SCH (08:58)
[2016-11-13] MEDS: GABAPENTIN 300 MG CAPSULE PO SCH (08:58)
[2016-11-13] MEDS: POLYETHYLENE GLYCOL POWDER 17 GM PACK PO SCH (08:58)
[2016-11-13] MEDS: metFORMIN 850 MG TABLET PO SCH (08:58)
[2016-11-13] MEDS: CYANOCOBALAMIN 100 MCG TABLET PO SCH (08:59)
[2016-11-13] MEDS: PANTOPRAZOLE 40 MG TABLET PO SCH (08:59)
--- NOTE | 2016-11-13 09:51 | Discharge Summary ---
Hospital Course - Hospital Course Hospital Course: 66-year-old -Wel[place] female with multiple comorbidities admitted by Dr. Salinas through the emergency room on 11/07/2016 with an incarcerated umbilical hernia associated with nausea and vomiting. She was also found to be in A. fib with RVR. She was cleared by cardiology and the hospitalist. She was taken to the operating room on 11/08/[address] Salinas did an exploratory laparotomy with lysis of adhesions and repair of a reduced incisional hernia. As far as surgery goes patient has done very well. She is now tolerating a diet and she is ambulating in the room with a standard walker. Her pain is well controlled and her incision looks great. Cardiology now has her A. fib with RVR under control with p.o. medications. She is now resumed on her Coumadin with her INR in therapeutic range. Patient will be discharged home with a 2 week follow-up with Dr. Salinas. Patient has lower extremity wounds that she will need to see Dr. Andre in the wound center for. Will check with cardiology and see if they need follow-up as well. Complete discharge instructions were given to the patient. Care coordination, chart review, and completed discharge paperwork took approximately 45 minutes. - Time spent with patient Time with patient DS: Greater than 30 minutes Diagnosis - Discharge Diagnosis (1) Atrial fibrillation with RVR Status: Acute (2) History of DVT (deep vein thrombosis) Status: Chronic (3) Chronic venous insufficiency Status: Chronic (4) Anemia of chronic disease Status: Chronic (5) Venous stasis ulcer of both lower extremities without varicose veins Status: Acute (6) Chronic anticoagulation Status: Chronic (7) Hypertension Status: Chronic (8) Dyslipidemia Status: Chronic (9) Diabetes Status: Chronic (10) Sleep disorder Status: Chronic (11) Umbilical hernia, incarcerated Status: Acute (12) Hypokalemia Status: Acute Specialty Discharge - Follow Up or Referrals Follow up with: Susy Ochoa DO [Physician] - 11/29/16 9:50 am (appointment with a ekg) Discharge Plan - Discharge Data Disposition: Disch To Home/Self Care Condition at Discharge: Stable Discharge Diet: advance to your usual diet Activity: as per physical therapy Hygiene: may shower Driving: other (No driving if taking pain medications) Contact your physician if you experience:: fever over 101, Nausea/Vomiting Wound / Dressing Care Instructions: Okay to shower daily with mild soap and water, pat dry, okay to leave open to the air - Discharge Medications New Digoxin Tab [Lanoxin Tab] 0.25 mg PO DAILY@1300 #30 tablet Continue Quinapril [Accupril] 20 mg PO DAILY Potassium Chloride [Klor-Con M20] 20 meq PO DAILY Pentoxifylline [TRENtal] 400 mg PO TID Omeprazole 20 mg PO DAILY Levothyroxine Tab [Synthroid Tab] 150 mcg PO DAILY HYDROcodone/ACETAMIN 10-325 [[place] 10-325] 1 tablet PO Q4-6H PRN PRN Reason: Pain Gabapentin 300 mg PO TID Furosemide 40 mg PO DAILY Polyethylene Glycol Powder [Miralax] 17 gm PO TID #90 powder Spironolactone [Aldactone] 25 mg PO DAILY #60 tablet Nebivolol [Bystolic] 20 mg PO DAILY Diltiazem Cd Cap [Cardizem CD] 240 mg PO BID Methotrexate Tab 15 mg PO Q7DAY Warfarin Sodium [Jantoven] 3 mg PO DAILY Tizanidine HCl [Zanaflex] 4 mg PO TID PRN PRN Reason: Leg Cramps Naproxen [Naproxen Tab] 500 mg PO BID PRN PRN Reason: Pain and Inflammation Krill/Om-3/Dha/Epa/Phospho/Ast [[place]-3 Krill Oil 300 mg Sfgl] 2 each PO DAILY metFORMIN [Glucophage] 850 mg PO DAILY W/BREAKFAST predniSONE TAB [PredniSONE] 5 mg PO DAILY Cyanocobalamin (Vitamin B-12) [Vitamin B-12] 50 mcg PO DAILY Folic Acid Tab 1 mg PO DAILY - Follow Up or Referral Follow Up: Susy Ochoa DO [Physician] - 11/29/16 9:50 am (appointment with a ekg) Jesus Salinas MD [Physician] - 2 Weeks - Forms/Instructions Exam - Constitutional Vitals: Period Temp Pulse Resp BP Sys/Mehta Pulse Ox Last 24 Hr 97.5 F-97.9 F 60-89 18-20 117-139/69-86 91-99 Discharge Results Labs on day of discharge: Labs from last 24 hours 11/13/16 11/12/16 11/12/16 05:35 23:36 18:05 POC Glucose 85 121 H 123 H 11/12/16 11:02 POC Glucose 117 H DS: Provider Date of admission: 11/08/16 03:09 Primary care physician: Lionel Pacheco Attending physician on admission: Jesus Salinas MD Consults: 11/08/16 06:20 Consult to Pastoral Services [CONS] Routine Comment: Pastoral Screen: Request Natural Resources Specialist Visit Pastoral Screen Source of Request: Patient 11/08/16 07:43 Consult to Physician [CONS] Routine Comment: Consulting Provider: Consult to Specialist Group: Cardiology When should Consulting Provider be notified: Now Person Notified: Lizbeth Sood Date Notified: 11/08/16 Time Notified: 07:30 11/08/16 07:45 Consult to Physician [CONS] Routine Comment: Consulting Provider: Miguel Angel Llanos Person Notified: Dr. Llanos Date Notified: 11/08/16 Time Notified: 07:49 11/08/16 08:21 Consult to Anesthesiology [CONS] Routine Consulting Provider: Reason for Anesthesiology: Pre-op Clearance 11/08/16 10:00 Consult to Wound Care - [place] [CONS] Routine Reason for Wound Care: Wound Care Management Consult Comment: pt of dr warner, BLE venous wounds Discharging clinician: BETTINA Francisco Expected date of discharge: 11/13/16
--- NOTE | 2016-11-13 09:54 | Cardiology Progress Note ---
Jose Padron April, RN, am scribing for, and in the presence of, Salvatore Brooks MD 09:53. Assessment and Plan (1) Chronic atrial fibrillation Status: Chronic Assessment and plan: 1. Ms. Amin is doing well clinically after her lysis of adhesions and hernia reduction surgery last week. 2. She is hemodynamically stable and is therapeutic on her INR at 2.2 3. Atrial fibrillation is chronic with controlled rate on digoxin and Bystolic 20 mg daily 4. She can be discharged from a cardiac standpoint and follow-up with Dr. Cantrell in the next 1-2 weeks time with EKG Current Visit: Yes (2) Umbilical hernia, incarcerated Status: Acute Current Visit: Yes (3) Hypothyroidism Status: Chronic Current Visit: Yes (4) Obstructive sleep apnea Status: Chronic Current Visit: Yes (5) Chronic anticoagulation Status: Chronic Current Visit: Yes (6) Diabetes Status: Chronic Current Visit: Yes (7) Dyslipidemia Status: Chronic Current Visit: Yes (8) Hypertension Status: Chronic Current Visit: Yes Qualifiers: Hypertension type: essential hypertension Qualified Code(s): I10 - Essential (primary) hypertension (9) Venous stasis of both lower extremities Status: Chronic Current Visit: Yes Cardiology - PN: Subj Interval history: PRIMARY SURVEY PARTY CHIEF: DR. MATTHEWS Summary: Ms. Amin is a 66 year old black female with risk factor significant for: hypertension, dyslipidemia, obstructive sleep apnea, sedentary lifestyle, obesity, family history of premature CAD and she has never been a smoker. Past medical history includes chronic atrial fibrillation and is anticoagulated with Jantoven for stroke prevention and DVT prevention (history of DVT). In March 2016, she required admission to hospital for volume overload, acutely decompensated systolic and diastolic congestive heart failure with EF 45-50%, and AFRVR. Echo in March 2016 also showed biatrial enlargement, increased RV size, moderate TR with PA pressure 55 mmHg. The patient also has chronic anemia, and she did require blood transfusion during admission. She has chronic venous stasis with ulcers of bilateral lower extremities and follows routinely with Dr. Andre for wound care. Other history includes hypothyroidism and rheumatoid arthritis, GERD. Ms. Amin presented to [facility] ED November 08 after midnight with complaints of nausea, vomiting, and diarrhea for approximately 24 hours. She was unable to eat or keep medications down. Patient felt symptoms were improving earlier in the evening but worsened that night prompting her presentation. She also reported some slight abdominal tenderness in umbilical area for approximately 2 days and an unintentional 30 pound weight loss over the last month. CT of abdomen showed ventral abdominal wall hernia with small bowel and distended proximal small bowel loops suggestive of small bowel obstruction. It was decided she be admitted to [facility] for evaluation and treatment of small bowel obstruction, but just prior to transferring from ED to [facility], patient had sudden onset of extreme nausea with dry heaves, increased abdominal pain, hypotension, and was noted to be in atrial fibrillation with ventricular response 150. Patient was then treated with IV Cardizem bolus and infusion, IV fluids, ventricular response improved. She underwent exploratory laparotomy with repair of incisional hernia November [address] Lerner. November 13, 2016: Ms. Amin is day 5 status post hernia repair. She is seen on the [facility]. She is now in atrial fibrillation with a controlled rate in the 70s. Her IV Cardizem has been changed to 240 mg p.o. twice daily, which was a home medicine. Her home dose of Bystolic 20 mg daily has also been continued. She is chronically anticoagulated on Coumadin, this has been restarted since surgery. Her INR yesterday was 2.2. Echocardiogram November 08 showed ejection fraction of 55%. It also showed a severely dilated right atrium and severe tricuspid regurgitation. Her CPAP machine was brought from home and she reports she did use it last night. She reports she feels really good this morning and denies any chest pain or shortness of breath. Vital signs have been stable. Exam (Progress Note) - Constitutional Vitals: Period Temp Pulse Resp BP Sys/Mehta Pulse Ox Last 24 Hr 97.5 F-97.9 F 60-89 18-20 117-139/69-86 91-99 General appearance: no acute distress, over weight - Head Head exam: Absent: abrasion, hematoma - Eye Eye exam: Absent: periorbital swelling, laceration to eyelids Pupils: Present: SHWETHA. Absent: dilated, irregular - Neck Neck exam: Absent: tenderness - Respiratory Respiratory exam: Present: clear to auscultation bilaterally. Absent: accessory muscle use, chest wall tenderness - Cardiovascular Cardiovascular exam: Present: regular rate and rhythm. Absent: diastolic murmur , systolic murmur, tachycardia - GI/Abdominal GI/Abdominal exam: Present: normal bowel sounds, soft. Absent: distended, tenderness - Extremities Exam Extremities exam: Present: other (Unable to assess as patient has bilateral lower extremities dressed. She tells me she does have some ulcers as well as edema.) - Neurological Exam Neurological exam: Present: alert, oriented X3 - Psychiatric Psychiatric exam: Present: normal affect, normal mood - Skin Skin exam: Present: warm, dry Result/EKG - Labs CBC & BMP: 11/12/16 02:19 11/12/16 02:19 Lab Results: I have reviewed the past 24 hour labs Labs: Laboratory Results - last 24 hr 11/12/16 11/12/16 11/12/16 11:02 18:05 23:36 POC Glucose 117 H 123 H 121 H 11/13/16 05:35 POC Glucose 85 - Diagnostic Findings Procedure: Chest x-ray: report reviewed by me - EKG EKG results: interpreted by me EKG shows: atrial fibrillation Quality Measures - VTE Contraindication to Mechanical VTE Prophylaxis: Vascular Ulceration Todd Padron Randall Scott, MD, personally performed the services described in this documentation, ascribed by Tanja Garcia RN in my presence, and it is both accurate and complete 953 .
[2016-11-13 12:07] VITALS: BP 142/91
[2016-11-13] MEDS: GENTAMICIN 0.1% OINT 15 GM TUBE TOP SCH (12:22)
[2016-11-13] MEDS: ACETIC ACID 0.25% IRRIGATION 1,000 ML BOTTLE IRRIG SCH (12:22)
[2016-11-13] MEDS: DIGOXIN 0.25 MG TABLET PO SCH (12:38)
--- NOTE | 2016-11-13 13:23 | Pathology Report from [facility] ---
[facility] ACCESSION # : [id number] PATIENT NAME : Alban Olmos ORDERING DR : Jesus Salinas MD CLINICAL HX: Incisional hernia, small bowel obstruction POST-OP DX: Same SPECIMEN INFO: Hernia sac GROSS DESCRIPTION: The specimen is received in formalin labeled ALBAN OLMOS and consists of a 7.8 x 4.7 x 2.5 cm fatty fibromembranous thicken tissue fragment. Sectioning reveals a cyst containing gelatinous like yellow material. The cyst measures up to 2.5 cm. Further sectioning reveals additional cysts measuring 0.8 to 1.3 cm, Submitted in three cassettes labeled A, B and C. DIAGNOSIS FOR ALBAN OLMOS: INCISIONAL HERNIA REPAIR: Hernia sac with fibrosis , congestion, acute hemorrhage, acute and chronic inflammation. COLLECTED DATE: 11/09/2016 [facility] REPORT DATE: 11/10/2016 ELECTRONICALLY SIGNED BY: Lamont Cobb M.D. 11/10/2016 - 10:02:46 MTDD
[2016-11-19] MEDS ORDERED: METHOTREXATE 2.5 MG TABLET PO SCH (09:00)
== END 2016-11-13 13:00 | disposition home or self-care (01) | DRG 354 ==
LOC: N.ED 23:53 → N.EDINP 11-08 03:09 → N.3E 11-08 03:39 → N.ICU 11-08 04:01 → N.3E 11-10 16:17
PROVIDERS: ADMIT Surgery; ATTEND Surgery

== ENCOUNTER 2017-11-07 11:44 | Inpatient (IN) ==
[2017-11-07] MEDS ORDERED: SODIUM CHLORIDE 0.9% 500 ML IV STA (12:18)
[2017-11-07] MEDS ORDERED: DILTIAZEM 50 MG/10 ML VIAL IV STA (12:18)
[2017-11-07] MEDS ORDERED: DILTIAZEM INJ 100 MG in SODIUM CHLORIDE 0.9% 100 ML IV SCH (12:30)
[2017-11-07 12:43] LABS: Basophils % 0.3 % (0.0-0.8); Eosinophils # 0.3 10*3/uL (0.0-0.87); Eosinophils % 4.4 % (0.00-10.9); Hematocrit 25.4 VOL% (35.7-47.0); Immature Granulocytes % 1.2 %; Immature Granulocytes Absolute 0.07 #; Lymphocytes # 1.2 10*3/uL (1.4-4.0); Lymphocytes % 20.7 % (21.3-54.2); Mean Corpuscular HGB Conc 31.5 GM/DL (32-36); Mean Corpuscular Hemoglobin 23 PG (27-34); Mean Corpuscular Volume 74.3 FL (87-102); Mean Platelet Volume 10.1 FL (9.6-12.0); Monocytes # 0.8 10*3/uL (0.11-0.8); Monocytes % 14.1 % (1.7-12.7); Neutrophils # 3.4 10*3/uL (1.4-7.4); Neutrophils % 59.3 % (38.7-73.9); Platelet Count 194 T/CUMM (130-400); Red Blood Count 3.42 MC/CUMM (3.8-5.5); Red Cell Distribution Width 19.9 % (9.3-17.3); White Blood Count 5.7 T/CUMM (4-12)
[2017-11-07 13:08] LABS: Bilirubin,Total 0.8 MG/DL (0.2-1.0); Osmolality,Calculated 284.5 MOS/KG (273-304); Potassium 3.7 MMOL/L (3.5-5.1); Thyroid Stimulating Hormone 15.7 uIU/ml (0.358-3.74); Total Protein 6.7 G/DL (6.4-8.3)
[2017-11-07 13:10] LABS: Troponin I Only 0.063 NG/ML (0.00-0.045)
[2017-11-07 13:51] LABS: INR 1.4; PT Patient Result 14.9 SECS; Partial Thromboplastin Time 31.1 SECS (0-40)
[2017-11-07] MEDS ORDERED: DEXTROSE 50% 25 GM/50 ML VIAL IV PRN (15:05)
[2017-11-07] MEDS ORDERED: ACETAMINOPHEN 325 MG TABLET PO PRN (15:05)
[2017-11-07] MEDS ORDERED: LACTULOSE 20 GM/30 ML UDCUP PO PRN (15:05)
[2017-11-07] MEDS ORDERED: ONDANSETRON 4 MG/2 ML VIAL IV PRN (15:05)
[2017-11-07] MEDS ORDERED: GLUCAGON 1 MG VIAL IM PRN (15:05)
[2017-11-07] MEDS ORDERED: tiZANidine 4 MG TABLET PO PRN (15:53)
[2017-11-07] MEDS ORDERED: NON-FORMULARY MEDICATION (Losartan Potassium [Losartan Potassium] 100 MG) PO SCH (16:00)
[2017-11-07] MEDS: DILTIAZEM 30 MG TABLET PO SCH ×2 (16:15→21:32)
[2017-11-07 17:27] LABS: Free T4 (Free Thyroxine) 1.14 NG/DL (0.76-1.46)
[2017-11-07] MEDS ORDERED: SKIN HEALING OINT (AQUAPHOR) 50 GM TUBE TOP PRN (18:03)
[2017-11-07] MEDS ORDERED: CHLORHEXIDINE 4% SOLN 118 ML BOTTLE TOP ONE (18:03)
[2017-11-07] MEDS: INSULIN LISPRO 100 UNIT/ML SUBCUT SCH ×2 (18:13→21:52)
[2017-11-07] MEDS: ATORVASTATIN 20 MG TABLET PO SCH (18:17)
[2017-11-07] MEDS: FOLIC ACID 1 MG TABLET PO SCH (18:17)
[2017-11-07] MEDS: MULTIVITAMIN (CENTRUM) TABLET PO SCH (18:17)
[2017-11-07] MEDS: OMEGA 3 ACID ETHYL ESTERS 1 GM CAPSULE PO SCH (18:18)
[2017-11-07] MEDS: FUROSEMIDE 40 MG/4 ML VIAL IV SCH (18:30)
[2017-11-07] MEDS ORDERED: METOPROLOL TARTRATE 100 MG TABLET PO SCH (21:00)
[2017-11-07] MEDS ORDERED: GABAPENTIN 300 MG CAPSULE PO SCH (21:00)
[2017-11-07] MEDS ORDERED: DILTIAZEM CD 240 MG CAPSULE PO SCH (21:00)
[2017-11-07] MEDS: APIXABAN 5 MG TABLET PO SCH (21:32)
[2017-11-08] MEDS: DILTIAZEM 30 MG TABLET PO SCH ×4 (01:03→13:42)
[2017-11-08 05:57] LABS: Basophils % 0.5 % (0.0-0.8); Eosinophils # 0.3 10*3/uL (0.0-0.87); Eosinophils % 4.9 % (0.00-10.9); Hematocrit 25.6 VOL% (35.7-47.0); Immature Granulocytes % 1.1 %; Immature Granulocytes Absolute 0.07 #; Lymphocytes # 1.3 10*3/uL (1.4-4.0); Lymphocytes % 19.9 % (21.3-54.2); Mean Corpuscular HGB Conc 31.3 GM/DL (32-36); Mean Corpuscular Hemoglobin 23 PG (27-34); Mean Corpuscular Volume 74.4 FL (87-102); Mean Platelet Volume 11.1 FL (9.6-12.0); Monocytes % 16.4 % (1.7-12.7); Neutrophils # 3.6 10*3/uL (1.4-7.4); Neutrophils % 57.2 % (38.7-73.9); Platelet Count 203 T/CUMM (130-400); Red Blood Count 3.44 MC/CUMM (3.8-5.5); Red Cell Distribution Width 20.3 % (9.3-17.3); White Blood Count 6.3 T/CUMM (4-12)
[2017-11-08 06:07] LABS: INR 1.4; PT Patient Result 14.5 SECS
[2017-11-08 06:15] LABS: Calcium 9.1 MG/DL (8.5-10.1); Osmolality,Calculated 284.4 MOS/KG (273-304); Potassium 3.6 MMOL/L (3.5-5.1)
[2017-11-08 06:19] LABS: Eosinophils 2 % (0-10); Lymphocytes 23 % (20-55); Nucleated Red Blood Cells 1 (0-5); Platelet Estimate Normal; Segmented Neutrophils 64 % (50-85); Total Cells Counted 100
[2017-11-08] MEDS ORDERED: LEVOTHYROXINE 175 MCG TABLET PO SCH (06:30)
[2017-11-08] MEDS: ATORVASTATIN 20 MG TABLET PO SCH (08:30)
[2017-11-08] MEDS: MULTIVITAMIN (CENTRUM) TABLET PO SCH (08:30)
[2017-11-08] MEDS: OMEGA 3 ACID ETHYL ESTERS 1 GM CAPSULE PO SCH (08:30)
[2017-11-08] MEDS: APIXABAN 5 MG TABLET PO SCH (08:30)
[2017-11-08] MEDS: FOLIC ACID 1 MG TABLET PO SCH (08:30)
[2017-11-08] MEDS: INSULIN LISPRO 100 UNIT/ML SUBCUT SCH (08:39)
[2017-11-08] MEDS: FUROSEMIDE 40 MG/4 ML VIAL IV SCH (08:40)
[2017-11-08] MEDS ORDERED: PANTOPRAZOLE 40 MG TABLET PO SCH (09:00)
[2017-11-08] MEDS ORDERED: SODIUM HYPOCHLORITE 0.25% IRRIG 473 ML BOTTLE TOP SCH (09:00)
[2017-11-08 12:23] VITALS: BP 136/78
[2017-11-11] MEDS ORDERED: METHOTREXATE 2.5 MG TABLET PO SCH (09:00)
== END 2017-11-08 15:40 | disposition home health service (06) | DRG 308 ==
LOC: EDUNIT# → EDBD → N.ED 11:44 → N.EDINP 15:05 → N.TELES 17:39
PROVIDERS: ADMIT Internal Medicine; ATTEND Internal Medicine

== ENCOUNTER 2018-02-26 11:19 | Inpatient (IN) ==
[2018-02-26] MEDS ORDERED: SODIUM CHLORIDE 0.9% 1,000 ML IV STA ×2 (11:38→11:44)
[2018-02-26 12:08] LABS: ABG Base Excess -7.4 MMOL/L (-2.5-2.5); ABG HCO3 17.5 MMOL/L (20-26); ABG PH 7.355 (7.35-7.45); ABG PO2 101.7 MM HG (80-95); ABG TCO2 18.5 MMOL/L (23-27)
[2018-02-26 12:18] LABS: Eosinophils % 0.7 % (0.00-10.9); Hematocrit 19.1 VOL% (35.7-47.0); Immature Granulocytes % 2.2 %; Immature Granulocytes Absolute 0.03 #; Lymphocytes # 0.4 10*3/uL (1.4-4.0); Lymphocytes % 27.7 % (21.3-54.2); Mean Corpuscular HGB Conc 32.5 GM/DL (32-36); Mean Corpuscular Hemoglobin 23 PG (27-34); Mean Corpuscular Volume 70.7 FL (87-102); Monocytes # 0.2 10*3/uL (0.11-0.8); Monocytes % 13.1 % (1.7-12.7); NRBC # 0.42 10*3/uL; Neutrophils # 0.8 10*3/uL (1.4-7.4); Neutrophils % 56.3 % (38.7-73.9); Platelet Count 97 T/CUMM (130-400); Red Cell Distribution Width 20.6 % (9.3-17.3); White Blood Count 1.4 T/CUMM (4-12)
[2018-02-26 12:27] LABS: Hemoglobin 6.2 GM/DL (12.0-16.0)
[2018-02-26] MEDS ORDERED: VANCOMYCIN INJ 1,500 MG in SODIUM CHLORIDE 0.9% 500 ML IV STA (12:36)
[2018-02-26 12:39] LABS: Alanine Aminotransferase 13 U/L (13-56); Alkaline Phosphatase 173 U/L (45-117); Aspartate Amino Transferase 15 U/L (0-37); Blood Urea Nitrogen 40 MG/DL (7-18); Glucose 134 MG/DL (74-106); Osmolality,Calculated 286.7 MOS/KG (273-304); Sodium 138 MMOL/L (136-145); Total Protein 5.5 G/DL (6.4-8.3)
[2018-02-26] MEDS ORDERED: MEROPENEM 1,000 MG in SODIUM CHLORIDE 0.9% 100 ML IV STA (12:46)
[2018-02-26 12:47] LABS: Lactic Acid 2.3 MMOL/L (0.4-2.0)
[2018-02-26 12:56] LABS: Apearance,Urine Slightly Hazy (Clear); Bacteria,Urine Occasional /HPF (Few); Bilirubin,Urine Negative (Negative); Blood, Urine Negative (Negative); Glucose,Urine (UA) Negative (Negative); Hyaline Casts,Urine 1 /LPF (0-3); Ketones,Urine Negative (Negative); Mucus,Urine Occasional /LPF (Occasional); Nitrite,Urine Negative (Negative); Protein,Urine Negative; RBC,Urine 1 /HPF (0-4); Squamous Epithelial Cell,Urine Occasional /HPF (0-10); Transitional Epi Cells,Urine Occasional /HPF (<1); Urine Color Yellow (Yellow); Urine Specific Gravity 1.015 (1.001-1.035); Urine Urobilinogen < 2.0 EU/DL (0.2-1.0); WBC,Urine 1 /HPF (0-6)
[2018-02-26] MEDS ORDERED: PHENYLEPHRINE DRIP 40 MG/250 ML PREMIX IV ONE (13:12)
[2018-02-26 13:14] LABS: Barbiturates Screen,Urine Negative (Negative); Benzodiazepines Screen,Urine Negative (Negative); Cannabinoid Screen,Urine Negative (Negative); Opiate Screen,Urine Positive (Negative); Phencyclidine Screen,Urine Negative (Negative)
[2018-02-26 13:15] LABS: Band Neutrophils 8 % (0-10); Lymphocytes 26 % (20-55); Nucleated Red Blood Cells 33 (0-5); Platelet Estimate Decreased; Segmented Neutrophils 46 % (50-85); Total Cells Counted 100
[2018-02-26 13:16] LABS: Anisocytosis 2+; Poikilocytosis 2+; Target Cells 1+
[2018-02-26 13:17] LABS: Hypochromasia Slight; Ovalocytes Few
[2018-02-26 13:38] LABS: % Iron Saturation 8.5 % (18-50); Ferritin 282.9 ng/ml (8-252)
[2018-02-26] MEDS ORDERED: GLUCAGON 1 MG VIAL IM PRN (13:49)
[2018-02-26] MEDS ORDERED: ACETAMINOPHEN 325 MG TABLET PO PRN (13:49)
[2018-02-26] MEDS ORDERED: DEXTROSE 50% 25 GM/50 ML VIAL IV PRN (13:49)
[2018-02-26] MEDS ORDERED: PHENYLEPHRINE DRIP 40 MG/250 ML PREMIX IV PRN (13:54)
[2018-02-26] MEDS: SODIUM CHLORIDE 0.9% 1,000 ML IV SCH (14:00)
[2018-02-26] MEDS ORDERED: SODIUM CHLORIDE 0.9% 1,000 ML IV PRN ×2 (14:27→15:05)
[2018-02-26] MEDS ORDERED: INFLUENZA VIRUS VACCINE 0.5 ML SYRINGE IM ONE (15:21)
[2018-02-26 15:25] LABS: Folate 16.3 NG/ML (5.4-24.0)
[2018-02-26] MEDS ORDERED: VANCOMYCIN INJ 1,000 MG in SODIUM CHLORIDE 0.9% 250 ML IV ONE (16:00)
[2018-02-26] MEDS ORDERED: CHLORHEXIDINE 4% SOLN 118 ML BOTTLE TOP ONE (16:05)
[2018-02-26] MEDS ORDERED: SKIN HEALING OINT (AQUAPHOR) 50 GM TUBE TOP PRN (16:05)
[2018-02-26] MEDS: INSULIN REGULAR 100 UNIT/ML SUBCUT SCH ×2 (17:27→22:40)
[2018-02-26] MEDS: PIPERACILLIN/TAZOBACTAM 3,375 MG in SODIUM CHLORIDE 0.9% 100 ML IV SCH (17:33)
[2018-02-26] MEDS ORDERED: ENOXAPARIN 30 MG/0.3 ML SYRINGE SUBCUT SCH (21:00)
[2018-02-26] MEDS: GENTAMICIN 0.1% OINT 15 GM TUBE TOP SCH (22:40)
[2018-02-26] MEDS: ACETIC ACID 0.25% IRRIGATION 1,000 ML BOTTLE IRRIG SCH (22:40)
[2018-02-26 23:38] LABS: Hemoglobin 8.2 GM/DL (12.0-16.0)
[2018-02-27 00:45] LABS: PT Patient Result 95.6 SECS
[2018-02-27] MEDS ORDERED: PHYTONADIONE 10 MG/1 ML AMP SUBCUT ONE (01:15)
[2018-02-27] MEDS: DILTIAZEM 50 MG/10 ML VIAL IV ONE ×2 (02:25→03:05)
[2018-02-27] MEDS ORDERED: DILTIAZEM 25 MG/5 ML VIAL IV ONE (02:30)
[2018-02-27] MEDS: SODIUM CHLORIDE 0.9% 1,000 ML IV SCH ×2 (02:30→07:00)
[2018-02-27] MEDS: dilTIAZem Drip 125 MG/125 ML PREMIX IV SCH ×2 (02:30→15:30)
[2018-02-27] MEDS: PIPERACILLIN/TAZOBACTAM 3,375 MG in SODIUM CHLORIDE 0.9% 100 ML IV SCH ×3 (03:04→17:16)
[2018-02-27 05:34] LABS: Basophils % 0.6 % (0.0-0.8); Eosinophils # 0.1 10*3/uL (0.0-0.87); Eosinophils % 4.6 % (0.00-10.9); Hematocrit 23.1 VOL% (35.7-47.0); Hemoglobin 7.3 GM/DL (12.0-16.0); Immature Granulocytes % 2.3 %; Immature Granulocytes Absolute 0.04 #; Lymphocytes # 0.5 10*3/uL (1.4-4.0); Lymphocytes % 26.9 % (21.3-54.2); Mean Corpuscular HGB Conc 31.6 GM/DL (32-36); Mean Corpuscular Hemoglobin 23 PG (27-34); Mean Corpuscular Volume 71.7 FL (87-102); Monocytes # 0.3 10*3/uL (0.11-0.8); Monocytes % 14.3 % (1.7-12.7); NRBC # 0.35 10*3/uL; Neutrophils # 0.9 10*3/uL (1.4-7.4); Neutrophils % 51.3 % (38.7-73.9); Platelet Count 100 T/CUMM (130-400); Red Blood Count 3.22 MC/CUMM (3.8-5.5); Red Cell Distribution Width 20.3 % (9.3-17.3); White Blood Count 1.8 T/CUMM (4-12)
[2018-02-27 05:36] LABS: INR 3.9
[2018-02-27 05:41] LABS: PT Patient Result 42.2 SECS
[2018-02-27 05:44] LABS: Albumin 2.1 G/DL (3.4-5.0); Bilirubin,Total 1.8 MG/DL (0.2-1.0); Calcium 8.3 MG/DL (8.5-10.1); Osmolality,Calculated 286.3 MOS/KG (273-304); Potassium 4.2 MMOL/L (3.5-5.1)
[2018-02-27 06:26] LABS: Band Neutrophils 2 % (0-10); Eosinophils 4 % (0-10); Lymphocytes 31 % (20-55); Nucleated Red Blood Cells 23 (0-5); Platelet Estimate Decreased; Segmented Neutrophils 51 % (50-85); Total Cells Counted 100
[2018-02-27 06:27] LABS: Burr Cells Slight; Hypochromasia 1+; Ovalocytes Slight; Target Cells Few
[2018-02-27] MEDS ORDERED: FUROSEMIDE 40 MG/4 ML VIAL IV ONE ×2 (06:28→13:17)
[2018-02-27] MEDS: INSULIN REGULAR 100 UNIT/ML SUBCUT SCH ×4 (07:30→21:28)
[2018-02-27] MEDS: GENTAMICIN 0.1% OINT 15 GM TUBE TOP SCH ×3 (09:18→21:28)
[2018-02-27] MEDS: ACETIC ACID 0.25% IRRIGATION 1,000 ML BOTTLE IRRIG SCH ×2 (09:19→21:27)
[2018-02-27] MEDS: VANCOMYCIN INJ 1,750 MG in SODIUM CHLORIDE 0.9% 500 ML IV SCH ×2 (11:10→22:24)
[2018-02-27] MEDS: LACTULOSE 20 GM/30 ML UDCUP PO SCH ×2 (15:38→21:27)
[2018-02-27] MEDS: HYDROCORTISONE 100 MG VIAL IV SCH ×2 (15:38→22:23)
[2018-02-27] MEDS: PHYTONADIONE 5 MG/5 ML ORAL.SYR PO SCH (16:04)
[2018-02-27 19:03] LABS: Hemoglobin 8.6 GM/DL (12.0-16.0)
[2018-02-27 19:26] LABS: Fibrinogen Quant Value 459 MG% (200-400); INR 4.1
[2018-02-27 19:52] LABS: PT Patient Result 43.8 SECS; Partial Thromboplastin Time 59.2 SECS (0-40)
[2018-02-27] MEDS ORDERED: predniSONE 20 MG TABLET PO SCH (21:00)
[2018-02-27] MEDS: FUROSEMIDE 40 MG TABLET PO SCH (21:27)
[2018-02-28] MEDS: dilTIAZem Drip 125 MG/125 ML PREMIX IV SCH ×2 (02:01→04:59)
[2018-02-28 04:32] LABS: Basophils % 0.4 % (0.0-0.8); Hematocrit 27.8 VOL% (35.7-47.0); Hemoglobin 8.8 GM/DL (12.0-16.0); Immature Granulocytes % 1.1 %; Immature Granulocytes Absolute 0.03 #; Lymphocytes # 0.3 10*3/uL (1.4-4.0); Mean Corpuscular HGB Conc 31.7 GM/DL (32-36); Mean Corpuscular Hemoglobin 23 PG (27-34); Mean Corpuscular Volume 72.8 FL (87-102); Monocytes # 0.3 10*3/uL (0.11-0.8); Monocytes % 10.3 % (1.7-12.7); NRBC # 0.19 10*3/uL; Neutrophils % 77.2 % (38.7-73.9); Platelet Count 103 T/CUMM (130-400); Red Blood Count 3.82 MC/CUMM (3.8-5.5); Red Cell Distribution Width 21.2 % (9.3-17.3); White Blood Count 2.6 T/CUMM (4-12)
[2018-02-28 04:55] LABS: Albumin 1.9 G/DL (3.4-5.0); Bilirubin,Total 0.9 MG/DL (0.2-1.0); Calcium 8.1 MG/DL (8.5-10.1); Potassium 3.7 MMOL/L (3.5-5.1); Total Protein 5.9 G/DL (6.4-8.3)
[2018-02-28] MEDS: MORPHINE 4 MG/1 ML VIAL IV PRN ×2 (04:59→12:13)
[2018-02-28] MEDS: PIPERACILLIN/TAZOBACTAM 3,375 MG in SODIUM CHLORIDE 0.9% 100 ML IV SCH ×3 (04:59→17:03)
[2018-02-28 05:05] LABS: Burr Cells Slight; Hypochromasia 1+; Ovalocytes Slight; Platelet Estimate Decreased
[2018-02-28] MEDS: HYDROCORTISONE 100 MG VIAL IV SCH ×3 (07:26→17:02)
[2018-02-28] MEDS: LEVOTHYROXINE 175 MCG TABLET PO SCH (07:26)
[2018-02-28] MEDS: INSULIN REGULAR 100 UNIT/ML SUBCUT SCH ×4 (08:00→21:40)
[2018-02-28] MEDS: FUROSEMIDE 40 MG TABLET PO SCH ×2 (08:41→21:33)
[2018-02-28] MEDS: FOLIC ACID 1 MG TABLET PO SCH (08:42)
[2018-02-28] MEDS: MULTIVITAMIN (CENTRUM) TABLET PO SCH (08:42)
[2018-02-28] MEDS: POTASSIUM CHLORIDE 20 MEQ TABLET PO SCH (08:42)
[2018-02-28] MEDS: LACTULOSE 20 GM/30 ML UDCUP PO SCH ×2 (08:42→21:34)
[2018-02-28] MEDS: PHYTONADIONE 5 MG/5 ML ORAL.SYR PO SCH (08:42)
[2018-02-28] MEDS: METOPROLOL TARTRATE 50 MG TABLET PO SCH ×2 (10:30→21:33)
[2018-02-28] MEDS: DILTIAZEM CD 180 MG CAPSULE PO SCH (10:30)
[2018-02-28] MEDS: VANCOMYCIN INJ 1,750 MG in SODIUM CHLORIDE 0.9% 500 ML IV SCH (10:42)
[2018-02-28] MEDS: ACETIC ACID 0.25% IRRIGATION 1,000 ML BOTTLE IRRIG SCH ×2 (10:45→21:34)
[2018-02-28] MEDS: GENTAMICIN 0.1% OINT 15 GM TUBE TOP SCH ×3 (10:45→21:40)
[2018-02-28 12:07] LABS: INR 1.8; PT Patient Result 19.4 SECS
[2018-02-28 12:14] LABS: Partial Thromboplastin Time 43.7 SECS (0-40)
[2018-02-28] MEDS: guaiFENesin 200 MG/10 ML UDCUP PO PRN (18:23)
[2018-03-01] MEDS: HYDROCORTISONE 100 MG VIAL IV SCH ×3 (02:10→17:32)
[2018-03-01] MEDS: PIPERACILLIN/TAZOBACTAM 3,375 MG in SODIUM CHLORIDE 0.9% 100 ML IV SCH (02:32)
[2018-03-01] MEDS: dilTIAZem Drip 125 MG/125 ML PREMIX IV SCH ×2 (02:38→21:09)
[2018-03-01] MEDS: guaiFENesin 200 MG/10 ML UDCUP PO PRN ×2 (02:44→21:06)
[2018-03-01 04:58] LABS: Basophils % 0.3 % (0.0-0.8); Hematocrit 28.6 VOL% (35.7-47.0); Hemoglobin 9.1 GM/DL (12.0-16.0); Immature Granulocytes % 0.9 %; Immature Granulocytes Absolute 0.03 #; Lymphocytes # 0.4 10*3/uL (1.4-4.0); Lymphocytes % 13.6 % (21.3-54.2); Mean Corpuscular HGB Conc 31.8 GM/DL (32-36); Mean Corpuscular Hemoglobin 23 PG (27-34); Mean Corpuscular Volume 73.5 FL (87-102); Monocytes # 0.9 10*3/uL (0.11-0.8); Neutrophils # 1.8 10*3/uL (1.4-7.4); Neutrophils % 56.2 % (38.7-73.9); Platelet Count 221 T/CUMM (130-400); Red Blood Count 3.89 MC/CUMM (3.8-5.5); Red Cell Distribution Width 21.5 % (9.3-17.3); White Blood Count 3.2 T/CUMM (4-12)
[2018-03-01 05:31] LABS: Calcium 8.7 MG/DL (8.5-10.1); Osmolality,Calculated 291.3 MOS/KG (273-304); Potassium 3.8 MMOL/L (3.5-5.1)
[2018-03-01] MEDS: LEVOTHYROXINE 175 MCG TABLET PO SCH (05:58)
[2018-03-01 06:01] LABS: Band Neutrophils 4 % (0-10); Eosinophils 2 % (0-10); Lymphocytes 14 % (20-55); Metamyelocytes 1 %; Nucleated Red Blood Cells 6 (0-5); Segmented Neutrophils 60 % (50-85); Total Cells Counted 100
[2018-03-01 06:02] LABS: Acanthocytes 2+; Anisocytosis 2+; Hypochromasia 2+; Macrocytosis 1+; Microcytosis 1+; Ovalocytes 2+; Platelet Estimate Normal; Target Cells 2+
[2018-03-01] MEDS: FUROSEMIDE 40 MG TABLET PO SCH ×2 (09:31→21:07)
[2018-03-01] MEDS: FOLIC ACID 1 MG TABLET PO SCH (09:32)
[2018-03-01] MEDS: POTASSIUM CHLORIDE 20 MEQ TABLET PO SCH (09:32)
[2018-03-01] MEDS: MULTIVITAMIN (CENTRUM) TABLET PO SCH (09:32)
[2018-03-01] MEDS: DILTIAZEM CD 180 MG CAPSULE PO SCH (09:32)
[2018-03-01] MEDS: METOPROLOL TARTRATE 50 MG TABLET PO SCH ×2 (09:32→21:08)
[2018-03-01] MEDS: LACTULOSE 20 GM/30 ML UDCUP PO SCH (09:33)
[2018-03-01] MEDS: INSULIN REGULAR 100 UNIT/ML SUBCUT SCH ×4 (09:33→21:11)
[2018-03-01] MEDS: ACETIC ACID 0.25% IRRIGATION 1,000 ML BOTTLE IRRIG SCH ×2 (09:33→21:11)
[2018-03-01] MEDS: GENTAMICIN 0.1% OINT 15 GM TUBE TOP SCH ×3 (09:33→21:11)
[2018-03-01] MEDS ORDERED: CEFEPIME 2,000 MG in SODIUM CHLORIDE 0.9% 100 ML IV SCH (10:00)
[2018-03-01] MEDS: MEROPENEM 1,000 MG in SODIUM CHLORIDE 0.9% 100 ML IV SCH ×2 (13:16→22:47)
[2018-03-01] MEDS ORDERED: CEFEPIME 2,000 MG in SYRINGE 1 EACH IV SCH (22:00)
[2018-03-02] MEDS: HYDROCORTISONE 100 MG VIAL IV SCH ×3 (01:40→17:07)
[2018-03-02] MEDS: dilTIAZem Drip 125 MG/125 ML PREMIX IV SCH ×2 (03:41→22:58)
[2018-03-02 04:21] LABS: Basophils % 0.3 % (0.0-0.8); Hematocrit 29.8 VOL% (35.7-47.0); Hemoglobin 9.3 GM/DL (12.0-16.0); Immature Granulocytes Absolute 0.09 #; Lymphocytes # 0.4 10*3/uL (1.4-4.0); Lymphocytes % 13.2 % (21.3-54.2); Mean Corpuscular HGB Conc 31.2 GM/DL (32-36); Mean Corpuscular Hemoglobin 23 PG (27-34); Mean Corpuscular Volume 72.9 FL (87-102); Mean Platelet Volume 9.9 FL (9.6-12.0); Monocytes # 1.2 10*3/uL (0.11-0.8); Monocytes % 39.1 % (1.7-12.7); NRBC # 0.83 10*3/uL; Neutrophils # 1.3 10*3/uL (1.4-7.4); Neutrophils % 44.4 % (38.7-73.9); Platelet Count 294 T/CUMM (130-400); Red Blood Count 4.09 MC/CUMM (3.8-5.5); Red Cell Distribution Width 21.8 % (9.3-17.3)
[2018-03-02 04:25] LABS: INR 1.3; PT Patient Result 13.8 SECS
[2018-03-02 04:43] LABS: Calcium 8.7 MG/DL (8.5-10.1); Osmolality,Calculated 290.5 MOS/KG (273-304); Potassium 3.8 MMOL/L (3.5-5.1)
[2018-03-02] MEDS: MEROPENEM 1,000 MG in SODIUM CHLORIDE 0.9% 100 ML IV SCH ×3 (06:10→21:17)
[2018-03-02] MEDS: guaiFENesin 200 MG/10 ML UDCUP PO PRN ×2 (06:29→18:24)
[2018-03-02] MEDS: LEVOTHYROXINE 175 MCG TABLET PO SCH (06:30)
[2018-03-02 07:04] LABS: Band Neutrophils 1 % (0-10); Lymphocytes 16 % (20-55); Nucleated Red Blood Cells 17 (0-5); Ovalocytes 2+; Platelet Estimate Normal; Segmented Neutrophils 58 % (50-85); Target Cells 2+
[2018-03-02 07:05] LABS: Hypochromasia 1+
[2018-03-02 07:07] LABS: Acanthocytes 2+
[2018-03-02 07:08] LABS: Elliptocytes 2+; Microcytosis 1+; Poikilocytosis 2+; Schistocytes 1+
[2018-03-02 07:09] LABS: Atypical Lymphocytes Few; Reactive Lymphocytes Few; Total Cells Counted 100
[2018-03-02] MEDS: INSULIN REGULAR 100 UNIT/ML SUBCUT SCH ×4 (07:58→21:21)
[2018-03-02] MEDS: FUROSEMIDE 40 MG TABLET PO SCH ×2 (08:49→21:14)
[2018-03-02] MEDS: LACTULOSE 20 GM/30 ML UDCUP PO SCH (08:50)
[2018-03-02] MEDS: DILTIAZEM CD 180 MG CAPSULE PO SCH (08:50)
[2018-03-02] MEDS: MULTIVITAMIN (CENTRUM) TABLET PO SCH (08:50)
[2018-03-02] MEDS: POTASSIUM CHLORIDE 20 MEQ TABLET PO SCH (08:50)
[2018-03-02] MEDS: FOLIC ACID 1 MG TABLET PO SCH (08:50)
[2018-03-02] MEDS: METOPROLOL TARTRATE 50 MG TABLET PO SCH ×2 (08:50→21:14)
[2018-03-02] MEDS: ACETIC ACID 0.25% IRRIGATION 1,000 ML BOTTLE IRRIG SCH ×2 (08:51→21:20)
[2018-03-02] MEDS: GENTAMICIN 0.1% OINT 15 GM TUBE TOP SCH ×3 (13:01→21:20)
[2018-03-03] MEDS: HYDROCORTISONE 100 MG VIAL IV SCH ×3 (02:00→17:18)
[2018-03-03 05:23] LABS: Basophils % 0.5 % (0.0-0.8); Hematocrit 30.2 VOL% (35.7-47.0); Hemoglobin 9.6 GM/DL (12.0-16.0); Immature Granulocytes % 8.9 %; Immature Granulocytes Absolute 0.34 #; Lymphocytes # 0.6 10*3/uL (1.4-4.0); Lymphocytes % 16.2 % (21.3-54.2); Mean Corpuscular HGB Conc 31.8 GM/DL (32-36); Mean Corpuscular Hemoglobin 23 PG (27-34); Mean Corpuscular Volume 73.3 FL (87-102); Mean Platelet Volume 10.1 FL (9.6-12.0); Monocytes # 1.7 10*3/uL (0.11-0.8); Monocytes % 43.9 % (1.7-12.7); NRBC # 0.99 10*3/uL; Neutrophils # 1.2 10*3/uL (1.4-7.4); Neutrophils % 30.5 % (38.7-73.9); Platelet Count 366 T/CUMM (130-400); Red Blood Count 4.12 MC/CUMM (3.8-5.5); Red Cell Distribution Width 22.1 % (9.3-17.3); White Blood Count 3.8 T/CUMM (4-12)
[2018-03-03 05:26] LABS: INR 1.3; PT Patient Result 14.4 SECS
[2018-03-03 05:58] LABS: Calcium 8.7 MG/DL (8.5-10.1); Osmolality,Calculated 289.7 MOS/KG (273-304); Potassium 3.8 MMOL/L (3.5-5.1)
[2018-03-03] MEDS: LEVOTHYROXINE 175 MCG TABLET PO SCH (06:08)
[2018-03-03] MEDS: MEROPENEM 1,000 MG in SODIUM CHLORIDE 0.9% 100 ML IV SCH ×3 (06:08→21:01)
[2018-03-03 07:09] LABS: Acanthocytes 1+; Anisocytosis 2+; Band Neutrophils 5 % (0-10); Eosinophils 1 % (0-10); Hypochromasia 2+; Lymphocytes 18 % (20-55); Metamyelocytes 4 %; Microcytosis 2+; Nucleated Red Blood Cells 22 (0-5); Ovalocytes 1+; Platelet Estimate Normal; Segmented Neutrophils 28 % (50-85); Total Cells Counted 100
[2018-03-03] MEDS: INSULIN REGULAR 100 UNIT/ML SUBCUT SCH ×4 (07:59→21:04)
[2018-03-03] MEDS: FUROSEMIDE 40 MG TABLET PO SCH ×2 (08:56→20:56)
[2018-03-03] MEDS: LACTULOSE 20 GM/30 ML UDCUP PO SCH (08:57)
[2018-03-03] MEDS: MULTIVITAMIN (CENTRUM) TABLET PO SCH (08:57)
[2018-03-03] MEDS: DILTIAZEM CD 180 MG CAPSULE PO SCH (08:57)
[2018-03-03] MEDS: METOPROLOL TARTRATE 50 MG TABLET PO SCH ×2 (08:57→20:56)
[2018-03-03] MEDS: FOLIC ACID 1 MG TABLET PO SCH (08:57)
[2018-03-03] MEDS: ACETIC ACID 0.25% IRRIGATION 1,000 ML BOTTLE IRRIG SCH ×2 (08:57→21:04)
[2018-03-03] MEDS: POTASSIUM CHLORIDE 20 MEQ TABLET PO SCH (08:57)
[2018-03-03] MEDS: GENTAMICIN 0.1% OINT 15 GM TUBE TOP SCH ×3 (08:58→21:04)
[2018-03-03] MEDS: DILTIAZEM CD 240 MG CAPSULE PO SCH (20:57)
[2018-03-03] MEDS: dilTIAZem Drip 125 MG/125 ML PREMIX IV SCH (22:11)
[2018-03-04] MEDS: HYDROCORTISONE 100 MG VIAL IV SCH ×3 (02:04→18:05)
[2018-03-04 05:04] LABS: INR 1.4; PT Patient Result 15.5 SECS
[2018-03-04] MEDS: LEVOTHYROXINE 175 MCG TABLET PO SCH (06:04)
[2018-03-04] MEDS: MEROPENEM 1,000 MG in SODIUM CHLORIDE 0.9% 100 ML IV SCH ×3 (06:04→21:45)
[2018-03-04] MEDS: METOPROLOL TARTRATE 50 MG TABLET PO SCH (09:37)
[2018-03-04] MEDS: FUROSEMIDE 40 MG TABLET PO SCH ×2 (09:38→21:46)
[2018-03-04] MEDS: FOLIC ACID 1 MG TABLET PO SCH (09:38)
[2018-03-04] MEDS: MULTIVITAMIN (CENTRUM) TABLET PO SCH (09:39)
[2018-03-04] MEDS: DILTIAZEM CD 240 MG CAPSULE PO SCH ×2 (09:39→21:46)
[2018-03-04] MEDS: LACTULOSE 20 GM/30 ML UDCUP PO SCH (09:40)
[2018-03-04] MEDS: GENTAMICIN 0.1% OINT 15 GM TUBE TOP SCH ×3 (09:40→21:56)
[2018-03-04] MEDS: INSULIN REGULAR 100 UNIT/ML SUBCUT SCH ×4 (09:40→21:56)
[2018-03-04] MEDS: ACETIC ACID 0.25% IRRIGATION 1,000 ML BOTTLE IRRIG SCH ×2 (09:40→21:55)
[2018-03-04] MEDS: METOPROLOL TARTRATE 100 MG TABLET PO SCH ×2 (09:40→21:46)
[2018-03-04] MEDS: POTASSIUM CHLORIDE 20 MEQ TABLET PO SCH (09:40)
[2018-03-04] MEDS: guaiFENesin 200 MG/10 ML UDCUP PO PRN (21:47)
[2018-03-05] MEDS: HYDROCORTISONE 100 MG VIAL IV SCH ×3 (02:00→17:50)
[2018-03-05 05:15] LABS: Hematocrit 34.1 VOL% (35.7-47.0)
[2018-03-05 05:34] LABS: Basophils # 0.1 10*3/uL (0.0-0.2); Basophils % 0.9 % (0.0-0.8); Eosinophils % 0.1 % (0.00-10.9); Hemoglobin 10.9 GM/DL (12.0-16.0); Immature Granulocytes % 29.6 %; Immature Granulocytes Absolute 2.29 #; Lymphocytes # 1.3 10*3/uL (1.4-4.0); Lymphocytes % 16.5 % (21.3-54.2); Mean Corpuscular Hemoglobin 23 PG (27-34); Mean Platelet Volume 10.2 FL (9.6-12.0); Monocytes # 2.2 10*3/uL (0.11-0.8); NRBC # 0.53 10*3/uL; Neutrophils # 1.9 10*3/uL (1.4-7.4); Neutrophils % 24.9 % (38.7-73.9); Red Blood Count 4.67 MC/CUMM (3.8-5.5); Red Cell Distribution Width 22.9 % (9.3-17.3)
[2018-03-05 05:45] LABS: Platelet Count 572 T/CUMM (130-400); White Blood Count 7.7 T/CUMM (4-12)
[2018-03-05 05:47] LABS: Calcium 8.9 MG/DL (8.5-10.1); Osmolality,Calculated 292.8 MOS/KG (273-304); Potassium 4.2 MMOL/L (3.5-5.1)
[2018-03-05 05:58] LABS: Hypochromasia Slight; Lymphocytes 41 % (20-55); Metamyelocytes 1 %; Nucleated Red Blood Cells 8 (0-5); Platelet Estimate Normal; Polychromasia Few; Segmented Neutrophils 27 % (50-85); Total Cells Counted 100
[2018-03-05] MEDS: MEROPENEM 1,000 MG in SODIUM CHLORIDE 0.9% 100 ML IV SCH ×2 (06:30→21:29)
[2018-03-05] MEDS: LEVOTHYROXINE 175 MCG TABLET PO SCH (06:31)
[2018-03-05] MEDS: POTASSIUM CHLORIDE 20 MEQ TABLET PO SCH (09:28)
[2018-03-05] MEDS: MULTIVITAMIN (CENTRUM) TABLET PO SCH (09:28)
[2018-03-05] MEDS: DILTIAZEM CD 240 MG CAPSULE PO SCH ×2 (09:29→21:26)
[2018-03-05] MEDS: LACTULOSE 20 GM/30 ML UDCUP PO SCH (09:29)
[2018-03-05] MEDS: FUROSEMIDE 40 MG TABLET PO SCH (09:29)
[2018-03-05] MEDS: METOPROLOL TARTRATE 100 MG TABLET PO SCH ×2 (09:29→21:26)
[2018-03-05] MEDS: INSULIN REGULAR 100 UNIT/ML SUBCUT SCH ×4 (09:29→21:28)
[2018-03-05] MEDS: FOLIC ACID 1 MG TABLET PO SCH (09:29)
[2018-03-05] MEDS: GENTAMICIN 0.1% OINT 15 GM TUBE TOP SCH ×3 (12:01→21:30)
[2018-03-05] MEDS: ACETIC ACID 0.25% IRRIGATION 1,000 ML BOTTLE IRRIG SCH ×2 (12:01→21:30)
[2018-03-06] MEDS: HYDROCORTISONE 100 MG VIAL IV SCH ×3 (00:20→16:46)
[2018-03-06 05:07] LABS: Basophils # 0.1 10*3/uL (0.0-0.2); Basophils % 0.6 % (0.0-0.8); Hematocrit 32.1 VOL% (35.7-47.0); Hemoglobin 10.2 GM/DL (12.0-16.0); Immature Granulocytes % 32.3 %; Immature Granulocytes Absolute 3.08 #; Lymphocytes # 1.3 10*3/uL (1.4-4.0); Lymphocytes % 13.1 % (21.3-54.2); Mean Corpuscular HGB Conc 31.8 GM/DL (32-36); Mean Corpuscular Hemoglobin 23 PG (27-34); Mean Corpuscular Volume 72.6 FL (87-102); Mean Platelet Volume 10.2 FL (9.6-12.0); Monocytes # 2.3 10*3/uL (0.11-0.8); Monocytes % 23.8 % (1.7-12.7); NRBC # 0.55 10*3/uL; Neutrophils # 2.9 10*3/uL (1.4-7.4); Neutrophils % 30.2 % (38.7-73.9); Platelet Count 634 T/CUMM (130-400); Red Blood Count 4.42 MC/CUMM (3.8-5.5); Red Cell Distribution Width 22.7 % (9.3-17.3); White Blood Count 9.5 T/CUMM (4-12)
[2018-03-06 05:37] LABS: Band Neutrophils 5 % (0-10); Hypochromasia 2+; Lymphocytes 20 % (20-55); Metamyelocytes 4 %; Myelocytes 9 %; Nucleated Red Blood Cells 9 (0-5); Ovalocytes 1+; Platelet Estimate Increased; Segmented Neutrophils 35 % (50-85); Target Cells 2+; Total Cells Counted 100
[2018-03-06 05:38] LABS: Anisocytosis 2+; Macrocytosis 1+; Microcytosis 1+
[2018-03-06 05:48] LABS: Calcium 8.5 MG/DL (8.5-10.1); Osmolality,Calculated 301.7 MOS/KG (273-304); Potassium 4.2 MMOL/L (3.5-5.1)
[2018-03-06] MEDS: LEVOTHYROXINE 175 MCG TABLET PO SCH (06:27)
[2018-03-06] MEDS: MEROPENEM 1,000 MG in SODIUM CHLORIDE 0.9% 100 ML IV SCH (08:25)
[2018-03-06] MEDS: INSULIN REGULAR 100 UNIT/ML SUBCUT SCH ×4 (08:26→16:46)
[2018-03-06] MEDS: POTASSIUM CHLORIDE 20 MEQ TABLET PO SCH (08:27)
[2018-03-06] MEDS: DILTIAZEM CD 240 MG CAPSULE PO SCH (08:27)
[2018-03-06] MEDS: MULTIVITAMIN (CENTRUM) TABLET PO SCH (08:27)
[2018-03-06] MEDS: METOPROLOL TARTRATE 100 MG TABLET PO SCH (08:27)
[2018-03-06] MEDS: LACTULOSE 20 GM/30 ML UDCUP PO SCH (08:27)
[2018-03-06] MEDS: FOLIC ACID 1 MG TABLET PO SCH (08:27)
[2018-03-06] MEDS ORDERED: FUROSEMIDE 40 MG TABLET PO SCH (09:00)
[2018-03-06] MEDS ORDERED: APIXABAN 5 MG TABLET PO SCH (09:00)
[2018-03-06] MEDS: ACETIC ACID 0.25% IRRIGATION 1,000 ML BOTTLE IRRIG SCH (10:47)
[2018-03-06] MEDS: GENTAMICIN 0.1% OINT 15 GM TUBE TOP SCH ×2 (10:47→14:28)
[2018-03-06 12:27] VITALS: BP 133/92
[2018-03-06] MEDS: guaiFENesin 200 MG/10 ML UDCUP PO PRN (12:33)
== END 2018-03-06 19:22 | disposition hospice, home (50) | DRG 871 ==
LOC: EDUNIT# → EDBD → N.ED 11:19 → SUATTDRO 13:49 → N.EDINP 13:49 → N.CC 14:36 → N.TELEN 02-28 13:26
PROVIDERS: ADMIT Internal Medicine Geriatric Medicine; ATTEND Internal Medicine